=== PATIENT | female | born 1935 | race Caucasian/White ===

== ENCOUNTER 2020-03-28 09:00 | Outpatient (REF) | payer MEDICARE, SELFPAY ==
--- NOTE | 2020-03-30 08:25 | MHC.AU.P13 ---
Adult Audiological Evaluation Date of Visit: 03/28/20 Tieing Machine Operator Used: Not Applicable Reason for Appointment: Audiologic re-evaluation due to question of change in hearing ability. Previous Hearing Test Results: 08/27/2018 [facility] Bilateral mild sloping to moderately-severe sensorineural hearing loss with 88% speech understanding at 80 dB HL for the right ear and 92% for the left ear at 85 dB HL. Ear History: Bothersome Tinnitus/Ringing/Noises in Ears: Both Ears Medical History: Medical History: High Blood Pressure Medical History: Anneliese reports no change in health or medications since last hearing test. Hearing Instrument History- Right Ear: Supervisor Burling And Joining: Parametric Sound Model: [employer] M 70-312T Serial Number: [id number] Battery Size: 312 Warranty: 11/24/2021 Service Plan: Repair and L&D Dispensed By: [facility] Date of Fittin09/09/2018 Hearing Instrument History- Left Ear: Supervisor Burling And Joining: [employer] Model: [employer] [id number] Serial Number: [id number] Battery Size: 312 Warranty: 11/24/2021 Service Plan: Repair and L&D Dispensed By: [facility] Date of Fittin09/09/2018 Otoscopy: Right Ear: Unremarkable Left Ear: Unremarkable Tympanometry: Right Ear: Normal Middle Ear System (Type A) Left Ear: Normal Middle Ear System (Type A) Hearing Evaluation: Transducer(s) Used: Insert Earphones Bone Conduction Method: Conventional Audiometry Stimuli Used: Pure Tones Right Ear: Description of Hearing: Mild sloping to moderately-severe sensorineural hearing loss Left Ear: Description of Hearing: Mild sloping to moderately-severe sensorineural hearing loss Speech Recognition Threshold (SRT): Method Used: Monitored Live Voice Stimuli Used: Spondee Words Right Ear: 40 dB HL Left Ear: 40 dB HL Word Discrimination: Method: Recorded Lists Word Lists Used: NU-6 Right Ear: 92% at 80 dB HL Left Ear: 84% at 80 dB HL Comparison: Compared to the most recent evaluation: Hearing is stable. Recommendations: Recommendations: Audiological re-evaluation in one year. Recommendations (Other): Continued and consistent use of hearing aids. Diagnosis: Primary Diagnosis: H90.3 Bilateral Sensorineural Hearing Loss Services Performed: Services Performed: Comprehensive Audiological Evaluation (CPT 39346) Tympanometry (CPT 51040) Signature: Provider: Jacky Kovacs, GEORGE-A
== END 2020-03-28 09:01 | disposition home or self-care (01) ==
LOC: HO.SH 09:00
PROVIDERS: Visit Provider Internal Medicine
DX: H90.3 Sensorineural hearing loss, bilateral (principal)
CPT/HCPCS: 92557; 92567

== ENCOUNTER 2020-07-10 11:43 | Outpatient (REF) | payer SELFPAY ==
--- NOTE | 2020-07-10 11:46 | MHC.AU.P13 ---
Hearing Instrument Problem Date of Visit: 07/10/20 Right Ear: Fuel House Attendant: Phonak Model: [employer] M 70-312T Serial Number: [id number] Repair Warranty: 11/24/2021 Service Plan: Repair and L&D Battery Size: 312 Color: [place] Charge Operator: #2 medium Type of Dome: Small Vented Type of Wax Guard: CeruShield Left Ear: Fuel House Attendant: Phonak Model: [place]one [employer] [id number] Serial Number: [id number] RepairWarranty: 11/24/2021 Service Plan: Repair and L&D Battery Size: 312 Color: [place] Charge Operator: #2 Medium Type of Dome: Small Vented Type of Wax Guard: CeruShield Follow-Up Summary: Right aid dropped off - static. Sent to [facility] for repair. Patient's case in repair drawer. Recommendations: Recommendations: Patient will be contacted when materials have arrived. Signature: Provider: JOSE May
== END 2020-07-10 11:44 | disposition home or self-care (01) ==
LOC: HO.HAP 11:43
PROVIDERS: Visit Provider Internal Medicine
DX: Z13.89 Encounter for screening for other disorder (principal)

== ENCOUNTER 2020-07-18 09:00 | Outpatient (REF) | payer SELFPAY | END 2020-07-18 09:01 | disposition home or self-care (01) | LOC: HO.HAP 09:00 | PROVIDERS: Visit Provider Internal Medicine | DX: Z13.89 Encounter for screening for other disorder (principal) ==

== ENCOUNTER 2020-08-16 08:15 | Outpatient (REF) | payer SELFPAY ==
--- NOTE | 2020-08-16 08:38 | MHC.AU.HFU ---
Hearing Instrument Follow-Up- Binaural Date of Visit: 08/16/20 Right Ear: Artificial Flower Maker: Phonak Model: Jackyeo M 70-312T Serial Number: [id number] Repair Warranty: 11/24/2021 Battery Size: 312 Color: [place] Television Production Assistant: #2 medium Type of Dome: Small Vented Type of Wax Guard: CeruShield Dispensed By: [facility] Date of Fittin09/09/2018 Left Ear: Artificial Flower Maker: Phonak Model: Audeo [id number] Serial Number: [id number] Repair Warranty: 11/24/2021 Battery Size: 312 Color: [place] Television Production Assistant: #2 Medium Type of Dome: Small Vented Type of Wax Guard: CeruShield Dispensed By: [facility] Date of Fittin09/09/2018 Follow-Up Summary: Patient reports the left hearing aid is now producing static. The right hearing aid was sent out for the same issue last month. Left hearing aid inspected. Tried replacing thermodynamics engineer- static was reduced in volume, but still present. The hearing aid was sent to [facility] for repair under warranty. Maintenance performed on the right hearing aid. Replaced right dome and wax guard. Right hearing aid is amplifying clearly. Recommendations: Recommendations: Patient will be contacted when materials have arrived. Diagnosis Code(s): Primary Diagnosis: H90.3 Bilateral Sensorineural Hearing Loss Signature: Provider: Jacky Hurtado, [facility]
== END 2020-08-16 08:16 | disposition home or self-care (01) ==
LOC: HO.HAP 08:15
PROVIDERS: Visit Provider Internal Medicine
DX: Z13.89 Encounter for screening for other disorder (principal)

== ENCOUNTER 2020-09-04 15:29 | Outpatient (REF) | payer SELFPAY | END 2020-09-04 15:30 | disposition home or self-care (01) | LOC: HO.HAP 15:29 | PROVIDERS: Visit Provider Internal Medicine | DX: Z13.89 Encounter for screening for other disorder (principal) ==

== ENCOUNTER 2020-11-22 09:43 | Outpatient (REF) | payer MEDICARE, SELFPAY ==
--- NOTE | ~2020-11-22 | MM_ITS ---
EXAMINATION: MM SCREENING DIGITAL BREAST TOMOSYNTHESIS, BILATERAL CLINICAL INFORMATION: Screening. Asymptomatic. COMPARISON: Mammography: 09/10/2019, 01/16/2017, 01/14/2016 TECHNIQUE: Digital breast tomosynthesis is performed in both the craniocaudal and mediolateral oblique views along with computer-aided detection (CAD). Synthesized 2D images are generated from the tomosynthesis. FINDINGS: There are scattered areas of fibroglandular density (ACR BI-RADS breast composition Category b). There are no significant masses, abnormal calcifications, or other abnormalities. Parenchymal pattern is similar to prior exams. No developing density. There is a dermal lesion again seen overlying the upper outer right breast. MM/MM tomosynthesis screening BI IMPRESSION: No mammographic evidence of malignancy. ASSESSMENT: BI-RADS 2: Benign RECOMMENDATION: Routine annual mammography screening. This patient's information was entered into a reminder system with a target due date for their next mammogram.
== END 2020-11-22 09:44 | disposition home or self-care (01) ==
LOC: HO.MAMMO 09:43
PROVIDERS: PCP Internal Medicine; Visit Provider Internal Medicine
DX: Z12.31 Encounter for screening mammogram for malignant neoplasm of breast (principal)
CPT/HCPCS: 77063; 77067

== ENCOUNTER 2021-04-09 08:32 | Outpatient (REF) | payer MEDICARE, SELFPAY ==
--- NOTE | 2021-04-09 15:33 | MHC.AU.AHA ---
Adult Audiological Evaluation Date of Visit: 04/09/21 Reason for Appointment: Audiological re-evaluation to monitor the status of her hearing loss. Ms. Black has a known bilateral sensorineural hearing loss and uses hearing aids binaurally. She notes that the hearing aids have been working well and she hasn't noticed any significant changes to her hearing. She notes that she started taking a water pill, but does not recall the name. She denies any other changed to her medical history. Previous Hearing Test Results: [facility] [place], 03/28/2020- Mild sloping to moderately-severe sensorineural hearing loss bilaterally. Ear History: History of Ear Wax Buildup: Both Ears Medical History: Medical History: High Blood Pressure Medical History: Anneliese reports no change in health since last hearing test. Allergies: Soy Hearing Instrument History- Right Ear: Clerical Order Filler: [employer] Model: [employer] M 70-312T Serial Number: [id number] Battery Size: 312 Repair Warranty: 11/24/2021 Loss and Damage Warranty: 11/24/2021 Dispensed By: [facility] Date of Fittin09/09/2018 Hearing Instrument History- Left Ear: Clerical Order Filler: [employer] Model: S[employer] [id number] Serial Number: [id number] Battery Size: 312 Warranty: 11/24/2021 Loss and Damage Warranty: 11/24/2021 Dispensed By: [facility] Date of Fittin09/09/2018 Otoscopy: Right Ear: Partially occluding cerumen successfully removed with lighted curette Left Ear: Unremarkable Tympanometry: Tympanometry performed due to: To assess integrity of the middle ear system Right Ear: Normal Middle Ear System (Type A) Left Ear: Normal Middle Ear System (Type A) Hearing Evaluation: Transducer(s) Used: Insert Earphones, Bone Conduction Method: Conventional Audiometry Stimuli Used: Pure Tones Right Ear: Description of Hearing: Mild sloping to moderately-severe sensorineural hearing loss from 250-8000 Hz. Left Ear: Description of Hearing: Mild sloping to moderately-severe sensorineural hearing loss from 250-8000 Hz. Speech Recognition Threshold (SRT): Method Used: Monitored Live Voice Stimuli Used: Spondee Words Right Ear: 45 dBHL Left Ear: 45 dBHL Word Discrimination: Method: Recorded Lists Word Lists Used: NU-6 Right Ear: 96% at 85 dBHL Left Ear: 100% at 85 dBHL Comparison: Compared to the most recent evaluation: Hearing is stable. Recommendations: Audiological re-evaluation in one year. Hearing aid maintenance performed today. Hearing aid(s) reprogrammed with updated test results. Diagnosis: Primary Diagnosis: H90.3 Bilateral Sensorineural Hearing Loss Secondary Diagnosis: H61.21 Impacted Cerumen, Right Ear Services Performed: Comprehensive Audiological Evaluation (CPT 54916) Tympanometry (CPT 46823) Signature: Provider: Jacky Cornelius, CCC-A
== END 2021-04-09 08:33 | disposition home or self-care (01) ==
LOC: HO.SH 08:32
PROVIDERS: Visit Provider Internal Medicine
DX: H61.21 Impacted cerumen, right ear (principal); H90.3 Sensorineural hearing loss, bilateral
CPT/HCPCS: 92557; 92567

== ENCOUNTER 2021-06-17 08:36 | Outpatient (REF) | payer MEDICARE, SELFPAY ==
--- NOTE | ~2021-06-17 | XR_ITS ---
EXAMINATION: XR HIP, RIGHT CLINICAL INFORMATION: Right hip pain. On limited range of motion. COMPARISON: None TECHNIQUE: Two views of the right hip. FINDINGS: There is severe loss of right hip joint space with periarticular sclerosis and subchondral lucency. No visible acute fracture, dislocation or subluxation seen. There are subchondral cystic changes. The soft tissues are normal. XR/XR hip RT min 2V IMPRESSION: Advanced degenerative changes right hip joint with no acute fracture or subluxation.
== END 2021-06-17 08:37 | disposition home or self-care (01) ==
LOC: HO.HMGCX 08:36
PROVIDERS: PCP Internal Medicine; Visit Provider Internal Medicine
DX: M25.551 Pain in right hip (principal)
CPT/HCPCS: 73502

== ENCOUNTER 2021-06-28 09:44 | Outpatient (REF) | payer MEDICARE, SELFPAY ==
--- NOTE | ~2021-06-28 | XR_ITS ---
EXAMINATION: XR PELVIS CLINICAL INFORMATION: Hip pain COMPARISON: None TECHNIQUE: AP view of the pelvis. FINDINGS: There is severe loss of right hip joint space with subchondral cystic changes and sclerosis. The left hip joint space is normal. The SI joints are symmetrical and normal. No pelvic bone abnormality seen. There is lateral subluxation L4 over L5. There are phleboliths in the pelvis. There is moderate stool in the colon. XR/XR pelvis 1-2V IMPRESSION: Severe degenerative changes right hip joint. No acute fracture or dislocation. Significant constipation.
== END 2021-06-28 09:45 | disposition home or self-care (01) ==
LOC: HO.HOSX 09:44
PROVIDERS: Visit Provider Orthopaedic Surgery
DX: M16.11 Unilateral primary osteoarthritis, right hip (principal)
CPT/HCPCS: 72170; 99202

== ENCOUNTER → 2021-11-07 09:37 | Outpatient (BNVA) | payer MEDICARE, SELFPAY | PROVIDERS: PCP Internal Medicine; Visit Provider Orthopaedic Surgery | DX: M16.11 Unilateral primary osteoarthritis, right hip (principal) | CPT/HCPCS: 99212 ==

== ENCOUNTER 2021-11-28 09:37 | Outpatient (REF) | payer MEDICARE, SELFPAY ==
--- NOTE | ~2021-11-28 | MM_ITS ---
EXAMINATION: MM SCREENING DIGITAL BREAST TOMOSYNTHESIS, BILATERAL CLINICAL INFORMATION: Screening. Asymptomatic. COMPARISON: Mammography: 11/22/2020, 09/08/2019; outside mammography 01/16/2017 ([facility]). TECHNIQUE: Digital breast tomosynthesis is performed in both the craniocaudal and mediolateral oblique views along with computer-aided detection (CAD). Synthesized 2D images are generated from the tomosynthesis. FINDINGS: There are scattered areas of fibroglandular density (ACR BI-RADS breast composition Category b). There are no significant masses, abnormal calcifications, or other abnormalities. No developing density or architectural abnormality. No significant changes. MM/MM tomosynthesis screening BI IMPRESSION: No mammographic evidence of malignancy. ASSESSMENT: BI-RADS 1: Negative RECOMMENDATION: Routine annual mammography screening. This patient's information was entered into a reminder system with a target due date for their next mammogram.
== END 2021-11-28 09:38 | disposition home or self-care (01) ==
LOC: HO.MAMMO 09:37
PROVIDERS: PCP Internal Medicine; Visit Provider Internal Medicine
DX: Z12.31 Encounter for screening mammogram for malignant neoplasm of breast (principal)
CPT/HCPCS: 77063; 77067

== ENCOUNTER → 2022-01-09 11:38 | Outpatient (BNVA) | payer MEDICARE, SELFPAY | PROVIDERS: PCP Internal Medicine; Visit Provider Physician Assistant | DX: M16.11 Unilateral primary osteoarthritis, right hip (principal) | CPT/HCPCS: 99212 ==

== ENCOUNTER 2022-01-14 07:08 | Inpatient (IN) | payer MEDICARE, SELFPAY ==
[2022-01-06 12:16] VITALS: BP 151/65; PULSE 55; RESP 16; O2SAT 99; BMI 21.2
--- NOTE | 2022-01-06 12:32 | P.CONAN_ITS ---
Documented by User: Sharyn Vance NP 01/13/22 08:23 HPI - Anesthesia Eval Consult details Narrative: 86yo F for Right Hip Total Replacement PCP clear pending PONV PMFSH Active Problems Active Problems: All Active Problems (Updated 01/06/22 @ 12:12 by Kristy Chamorro RN) Osteoarthritis of right hip (Acute) Past Medical History Medical History Diabetes [place] ([place] of hearing) Hypertension Hypothyroid On beta gopi at home Osteoporosis PONV (postoperative nausea and vomiting) RBBB (right bundle branch block) Family History Family history of problems with anesthesia: Yes (Children with PONV) Surgical History Surgical History History of hysterectomy Hx of colonoscopy Hx of right hemicolectomy History of Problems with Anesthesia: Yes (PONV) Social History Social History Household Members Other:: Son lives upstairs - 2 family house Are you a primary primary care sales representative to a significant other at home: No Do you presently have visiting nurse or other home services: No Patient Tobacco Use Status: Former Tobacco user Quit Date: quit age 43 Tobacco use type: Cigarette Second Hand Smoke Exposure: No Use of substances other than those prescribed or required for medical reasons: No Have you been hit, kicked, punched, or otherwise hurt by someone within the past year? If so, by whom?: No Are you DNR?: No Advance Directives: No Advance Directives Information Provided: Yes Advance Directives on File: No Recently lost weight without trying: No Eating poorly because of decreased appetite: No Nutrition Risks: No Nutritional Risk Patient : No : No Poor oral hygiene: No (Full upper, Partial lower) Narrative Narrative: No recent illness No chest pain, no SOB within limits of pain Meds Allergies Allergy/AdvReac Type Severity Reaction Status Date / Time meperidine [From Demerol] Allergy Unknown Nausea and Verified 01/09/22 11:46 Vomiting From Soy AdvReac Mild PALPITATION Uncoded 01/09/22 11:46 S Home Medications Medication Instructions Recorded Confirmed Last Taken Type amlodipine 5 mg-benazepril 10 mg 1 cap PO DAILY 06/28/21 01/03/22 01/13/22 History capsule (Lotrel) aspirin 81 mg tablet,delayed 81 mg PO DAILY 06/28/21 01/03/22 01/07/22 History release (Adult Low Dose Aspirin) cholecalciferol (vitamin D3) 1 mg PO DAILY 06/28/21 01/14/22 01/11/22 History levothyroxine 75 mcg tablet 75 mcg PO DAILY 06/28/21 01/03/22 01/14/22 History metoprolol tartrate 25 mg tablet 25 mg PO DAILY 06/28/21 01/03/22 01/14/22 History simvastatin 20 mg tablet 20 mg PO DAILY 06/28/21 01/03/22 01/13/22 History alendronate 70 mg tablet 70 mg PO QWEEK 12/17/21 01/03/22 01/09/22 History furosemide 20 mg tablet 20 mg PO DAILY 12/17/21 01/03/22 01/13/22 History Exam Exam Date and Time: January 06, 2022 1232 Height,Weight and Vital Signs: Height 5 ft 4 in Weight 56.245 kg Last Vital Signs Pulse 55 01/06/22 12:16 Resp 16 01/06/22 12:16 BP 151/65 H 01/06/22 12:16 Pulse Ox 99 01/06/22 12:16 O2 Del Method 01/06/22 12:16 Pertinent Lab Results Pertinent Lab Results: CBC and BMP from outside facility 12/2021 WNL Narrative Narrative: EKG from PCP 12/2021 SA. RBBB Airway Mallampati Class: I TM Dist: >3cm Neck ROM: Full Denture: Upper Partial: Lower Heart: RRR Lungs: CTAB Assessment and Plan Assessment Anesthesia Assessment: Anesthesia Plan Discussed and PAT Visit Final Anesthetic Review Family History of Problems with Anesthesia: Yes (Children with PONV) History of Problems with Anesthesia: Yes (PONV) Documented by User: Niraj Wright MD 01/14/22 10:53 HPI - Anesthesia Eval Consult details Narrative: 86yo F for Right Hip Total Replacement PCP cleared Sinus arrhythmia PONV PMFSH Past Medical History Medical History Diabetes [place]hard of hearing) Hypertension Hypothyroid On beta gopi at home Osteoporosis PONV (postoperative nausea and vomiting) RBBB (right bundle branch block) Surgical History Surgical History History of hysterectomy Hx of colonoscopy Hx of right hemicolectomy Social History Social History Household Members Other:: Son lives upstairs - 2 family house Are you a primary primary care sales representative to a significant other at home: No Do you presently have visiting nurse or other home services: No Patient Tobacco Use Status: Former Tobacco user Quit Date: quit age 43 Tobacco use type: Cigarette Second Hand Smoke Exposure: No Use of substances other than those prescribed or required for medical reasons: No Have you been hit, kicked, punched, or otherwise hurt by someone within the past year? If so, by whom?: No Are you DNR?: No Advance Directives: No Advance Directives Information Provided: Yes Advance Directives on File: No Recently lost weight without trying: No Eating poorly because of decreased appetite: No Nutrition Risks: No Nutritional Risk Patient : No : No Poor oral hygiene: No (Full upper, Partial lower) Meds Allergies Allergy/AdvReac Type Severity Reaction Status Date / Time meperidine [From Demerol] Allergy Unknown Nausea and Verified 01/09/22 11:46 Vomiting From Soy AdvReac Mild PALPITATION Uncoded 01/09/22 11:46 S Home Medications Medication Instructions Recorded Confirmed Last Taken Type amlodipine 5 mg-benazepril 10 mg 1 cap PO DAILY 06/28/21 01/03/22 01/13/22 History capsule (Lotrel) aspirin 81 mg tablet,delayed 81 mg PO DAILY 06/28/21 01/03/22 01/07/22 History release (Adult Low Dose Aspirin) cholecalciferol (vitamin D3) 1 mg PO DAILY 06/28/21 01/14/22 01/11/22 History levothyroxine 75 mcg tablet 75 mcg PO DAILY 06/28/21 01/03/22 01/14/22 History metoprolol tartrate 25 mg tablet 25 mg PO DAILY 06/28/21 01/03/22 01/14/22 History simvastatin 20 mg tablet 20 mg PO DAILY 06/28/21 01/03/22 01/13/22 History alendronate 70 mg tablet 70 mg PO QWEEK 12/17/21 01/03/22 01/09/22 History furosemide 20 mg tablet 20 mg PO DAILY 12/17/21 01/03/22 01/13/22 History Assessment and Plan Final Anesthetic Review NPO: Yes ASA Class: III Final Preanesthetic Review: No Changes in Pt Med Stat, Meds/Allgs Chart Reviewed, Consent Obtained/Reviewed and Anes Risks/Benef Reviewed Patient Risk: Intermediate Procedure Risk: Intermediate Anesthetic Plan Anesthetic Plan: GA Disposition: Standard PACU
[2022-01-06 15:19] LABS: MRSA Nasal PCR NEGATIVE (Negative); SA Nasal PCR NEGATIVE (Negative)
[2022-01-14] VITALS (15 sets, daily range): BP systolic 111–161; BP diastolic 52–66; PULSE 50–70; RESP 12–18; TEMP 36.3–36.9; O2SAT 97–100
--- NOTE | ~2022-01-14 | XR_ITS ---
EXAMINATION: XR PELVIS CLINICAL INFORMATION: Right hip replacement COMPARISON: Previous pelvis x-ray June 2021 TECHNIQUE: AP view of the pelvis. FINDINGS: There is a new right hip replacement in satisfactory position. No fracture or dislocation. There is mild arthritis at the left hip joint. There are postoperative changes to the soft tissues. XR/XR pelvis 1-2V IMPRESSION: Satisfactory appearance of right hip replacement.
[2022-01-14] MEDS: oxyCODONE HCl ER 10 MG TAB.ER.12H PO (07:36)
[2022-01-14] MEDS: Scopolamine 1.5 MG PATCH.TD.3 TRANSDERMA (07:36)
--- NOTE | 2022-01-14 07:43 | PHA.MEDREC ---
Pharmacy Consult ? Medication Reconciliation Pharmacy has completed the medication reconciliation. Reviewed med rec done by nursing
[2022-01-14 07:52] LABS: COVID-19 Test Negative (Negative); IDNOW Serial# 16C4AD1C
[2022-01-14] MEDS: Lactated Ringers 1,000 ML 100 ML IVCONT ×3 (08:20→22:40)
--- NOTE | 2022-01-14 11:16 | P.BOP_ITS ---
Brief Operative Note Date of Service: 01/14/22 Pre-op diagnosis: Right hip OA Post-op diagnosis: same Procedure: Right ELDER Implants: Rene Trident2 #54/ 20deg lipped liner [place] Accolade2 #6 127 deg + 0 36 cobalt chrome head Surgeon: Jr Chavez MD Anesthesia: GETA and local Was an Phlebotomy Services Representative used for this Procedure?: Yes Phlebotomy Services Representative: Danuta Mckenna Estimated blood loss (mL): 200 IV fluids (mL): 1,000 Pathology: other Condition: stable Disposition: PACU
--- NOTE | 2022-01-14 11:19 | W.PM.OPN ---
Operative Note Operative Note Date of Service: 01/14/22 Narrative: Date of Service: 01/14/22 Pre-op diagnosis: Right hip OA Post-op diagnosis: same Procedure: Right ELDER Implants: [place] Trident2 #54/ 20deg lipped liner Rene Accolade2 #6 127 deg + 0 36 cobalt chrome head Surgeon: Jr Chavez MD Anesthesia: GETA and local Was an Assembler For Puller Over Machine used for this Procedure?: Yes Assembler For Puller Over Machine: Danuta Mckenna Estimated blood loss (mL): 200 IV fluids (mL): 1,000 Pathology: other Condition: stable Disposition: PACU Procedure in detail: Patient was brought into the operating room and placed in the left lateral decubitus position. All bony prominences were well padded and the limb was prepped and draped in standard sterile fashion. Time-out was called to identify proper site procedure proper surgeon IV antibiotics and 1 g of transaxemic acid were administered. I began by making a curvilinear incision over the posterolateral aspect of the greater trochanter. Dissection was taken down to the tensor fascia which was incised in line with the incision and a Charnley retractor was placed. Cautery was used to maintain hemostasis. A werewolf device was also used. The hip was internally rotated and the external rotators were identified. The vessels were cauterized and a full-thickness capsular/external rotator layer was developed starting just proximal to the piriformis. This layer was tagged and a dull Hohmann retractor was placed underneath the neck in the hip was dislocated. A neck cut was made 1 cm proximal to the lesser trochanter and the head and neck were removed and measured at 47mm on the back table. The sciatic nerve was protected at all times and I started with a 42 mm reamer, medialized and sequentially reamed up to a size 53 and impacted a 54mm cup at approximately 45 degrees of inclination and 25 degrees of version. I then placed a lipped liner and turned my attention to the femur. I identified the piriformis insertion and used this as a starting point for my tiffany cutter. The medius tendon was protected with a Hibs retractor. I then used a Charnley awl to identify the canal and a curved curette to remove the lateral bone. I irrigated copiously. I then sequentially broached in the patient's natural version to a size 6 and placed my trial implants. Using a 127deg neck and a trail head I took the hip through range of motion. I was very satisfied with the stability and length. Therefore I removed all instrumentation and copiously irrigated. I placed my final femoral implant and again took the hip through range of motion and was satisfied with the stability and length. My final 36 + 0 cobalt chrome head was impacted in place the hip located. I then irrigated for 3 minutes with iodine and placed 1 g of local tranaxemic acid. I then performed a capsular closure with 2.0 fiberwire, Jen's fascia with 0 Vicryl, subcuticular with 2-0 Vicryl and the skin with zaheer. Patient was placed into a sterile dressing. Patient was extubated brought to the recovery room in stable condition. There were no known complications.
[2022-01-14] MEDS: Haloperidol Lactate 5 MG/ML VIAL IV (11:40)
[2022-01-14] MEDS: ondansetron HCL 4 MG/2 ML VIAL IVPUSH ×2 (13:16→17:03)
[2022-01-14 16:15] LABS: Creatinine Clr Calc Pharmacy 35.9; Estimated Glomerular Filt Rate 54
[2022-01-14] MEDS: ceFAZolin Sodium/Dextrose,Iso 2 GM/50 ML PIGGYBACK IV (16:20)
--- NOTE | 2022-01-14 17:05 | P.CONHOSP_ITS ---
History of Present Illness Data of Consult Service Date: 01/14/22 Requesting physician: Danuta Mckenna Primary Care Provider: Kam Stallworth MD HPI Reason for consult: medical management HTN, hx pe 86 year old female with history of diet-controlled type 2 diabetes, hearing loss, hypertension, hypothyroidism, osteoporosis, and history of provoked PE following colectomy 30 years ago not on anticoagulation admitted to Orthopedics s/p right hip replacement pod 0 with consult placed for medical management. Her only complaint at this time is mild dizziness and nausea that has been ongoing s caroline the surgery. Denies any associated blurred vision, diplopia, vomiting, headache, shortness of breath, presyncope, or chest pain. Review of Systems Review of Systems: General: No fevers, malaise, unintentional weight loss HEENT: No blurred vision or diplopia Cardiovascular: No chest pain, palpitations, or leg edema Respiratory: No shortness of breath, wheezing, cough GI: + nausea. No abdominal pain, vomiting, diarrhea, constipation, melena, hematochezia Neuro: +dizzy. No headaches, weakness, paresthesias Skin: No rashes or lesions [facility] Medical History Diabetes [place] (hard of hearing) Hypertension Hypothyroid On beta gopi at home Osteoporosis PONV (postoperative nausea and vomiting) RBBB (right bundle branch block) Family History (Updated 01/14/22 @ 17:08 by JEANETH Dominguez) Mother No problems noted. Father No problems noted. Surgical History History of hysterectomy Hx of colonoscopy Hx of right hemicolectomy Social History Household Members Other:: Son lives upstairs - 2 family house Are you a primary skin care technician to a significant other at home: No Do you presently have visiting nurse or other home services: No Patient Tobacco Use Status: Former Tobacco user Quit Date: quit age 43 Tobacco use type: Cigarette Second Hand Smoke Exposure: No Use of substances other than those prescribed or required for medical reasons: No Currently Displaying Signs/Symptoms of Drug Intoxication Withdrawal: No Have you been hit, kicked, punched, or otherwise hurt by someone within the past year? If so, by whom?: No Are you DNR?: No Advance Directives: No Advance Directives Information Provided: Yes Advance Directives on File: No Recently lost weight without trying: No Eating poorly because of decreased appetite: No Nutrition Risks: No Nutritional Risk Patient : No : No Poor oral hygiene: No (Full upper, Partial lower) service: No Current occupational status: retired Meds Allergies Allergy/AdvReac Type Severity Reaction Status Date / Time meperidine [From Demerol] Allergy Unknown Nausea and Verified 01/09/22 11:46 Vomiting From Soy AdvReac Mild PALPITATION Uncoded 01/09/22 11:46 S Active Medications: Current Medications Acetaminophen (Acetaminophen 325 Mg Tablet) 650 mg PO Q6H PRN PRN Reason: Pain, Mild (Pain Scale 1-3) Celecoxib (Celecoxib 200 Mg Capsule) 200 mg PO BID [facility] Docusate Sodium (Docusate Sodium 100 Mg Capsule) 100 mg PO BID [facility] Enoxaparin Sodium (Enoxaparin Sodium 40 Mg/0.4 Ml Syringe) 40 mg SUBCUT Q24H [facility] Haloperidol Lactate (Haloperidol Lactate 5 Mg/Ml Vial) 0.25 mg IV Q1H PRN PRN Reason: Nausea and Vomiting Last Admin: 01/14/22 11:40 Dose: 0.25 mg Hydromorphone HCl (Hydromorphone Hcl 0.5 Mg/0.5 Ml Syringe) 0.25 mg IVPUSH Q5M PRN; Protocol PRN Reason: Pain, Severe (Pain Scale 7-10) Hydromorphone HCl (Hydromorphone Hcl 0.5 Mg/0.5 Ml Syringe) 0.25 mg IVPUSH Q4H PRN; Protocol PRN Reason: Pain, Severe (Pain Scale 7-10) Lactated Ringer's (Lr) 1,000 mls @ 100 mls/hr IVCONT .Q10H [facility] Stop: 01/15/22 11:55 Last Admin: 01/14/22 12:05 Dose: 100 mls/hr Levothyroxine Sodium (Levothyroxine Sodium 75 Mcg Tablet) 75 mcg PO DAILY@0600 [facility] Metoprolol Tartrate (Metoprolol Tartrate 25 Mg Tablet) 25 mg PO DAILY [facility]; Protocol Ondansetron HCl (Ondansetron Hcl 4 Mg/2 Ml Vial) 4 mg IVPUSH Q8H PRN PRN Reason: Nausea and Vomiting Oxycodone HCl (Oxycodone Hcl Immed Release 5 Mg Tablet) 5 mg PO ONCE PRN PRN Reason: Pain, Severe (Pain Scale 7-10) Oxycodone HCl (Oxycodone Hcl Immed Release 5 Mg Tablet) 5 mg PO Q4H PRN PRN Reason: Pain, Moderate (Pain Scale 4-6 Sodium Chloride (0.9 % Sodium Chloride Flush 3 Ml Syringe) 3 ml IVFLUSH QSHIFT [facility] Last Admin: 01/14/22 16:10 Dose: Not Given Home Medications Medication Instructions Recorded Confirmed Last Taken Type amlodipine 5 mg-benazepril 10 mg 1 cap PO DAILY 06/28/21 01/03/22 01/13/22 History capsule (Lotrel) aspirin 81 mg tablet,delayed 81 mg PO DAILY 06/28/21 01/03/22 01/07/22 History release (Adult Low Dose Aspirin) cholecalciferol (vitamin D3) 1 mg PO DAILY 06/28/21 01/14/22 01/11/22 History levothyroxine 75 mcg tablet 75 mcg PO DAILY 06/28/21 01/03/22 01/14/22 History metoprolol tartrate 25 mg tablet 25 mg PO DAILY 06/28/21 01/03/22 01/14/22 History simvastatin 20 mg tablet 20 mg PO DAILY 06/28/21 01/03/22 01/13/22 History alendronate 70 mg tablet 70 mg PO QWEEK 12/17/21 01/03/22 01/09/22 History furosemide 20 mg tablet 20 mg PO DAILY 12/17/21 01/03/22 01/13/22 History Physical Exam Vital Signs and Narrative: Vital Signs: Last Vital Signs Temp 97.3 F 01/14/22 16:00 Pulse 64 01/14/22 16:00 Resp 18 01/14/22 16:00 BP 134/62 01/14/22 16:00 Pulse Ox 100 01/14/22 16:00 O2 Del Method 01/14/22 16:00 O2 Flow Rate 2 01/14/22 16:00 BMI result Body Mass Index 21.2 Constitutional - Awake and Alert, No apparent distress Eyes - PERRLA, EOMI Cardiovascular - S1S2, RRR, No edema Respiratory - Normal lung expansion, Normal respiratory effort, No respiratory distress, CTA bilaterally Gastrointestinal - NT / ND; +BS; No rebound or guarding Extremities - no calf tenderness bilaterally, no swelling Skin - Warm/Dry Neurological - Alert & oriented x3, CN II-XII in tact Psychological - Appropriate affect Results Labs CBC and Chem 7: 01/15/22 06:21 01/15/22 06:21 Labs: Laboratory Results - last 24 hr 01/14/22 01/14/22 07:30 15:46 Estim Creat Clear Calc 35.9 Estimated GFR 54 COVID-19 ([facility]) Negative COVID-19 Clin Com See Note Assessment and Plan (1) Status post total replacement of right hip: Status: Acute (2) Osteoarthritis of right hip: Status: Acute Plan 86 year old female with history of diet-controlled type 2 diabetes, hearing loss, hypertension, hyperlipidemia, hypothyroidism, osteoporosis, and history of provoked PE following colectomy 30 years ago not on anticoagulation admitted to Orthopedics s/p right hip replacement pod 0 with consult placed for medical management. Her only complaint at this time is mild dizziness and nausea that has been ongoing since the surgery. Denies any associated blurred vision, diplopia, vomiting, headache, shortness of breath, presyncope, or chest pain. #Osteoarthritis R hip s/p total hip replacement POD 0 -plan per orthopedics. -Reporting mild nausea and dizziness since surgery. Ondansetron given by RN. Will continue monitoring #HTN- controlled at this time -Continue metoprolol daily -Hold amlodipine-benazapril for now -Monitor BP. Resume amlodipine-benazepril as indicated #Hypothyroidisam -Continue levothyroxine #HLD -Continue statin #History PE -Provoked s/p colectomy 30 years ago. Completed anticoagulation without recurrence. Lifelong anticoagulation not indicated -DVT/PE prophylaxis per orthopedic surgery #osteoporosis -alendronate to be resumed at home. Next dose due Thank you for this consult. Will continue to follow.
[2022-01-14] MEDS: Celecoxib 200 MG CAPSULE PO (20:49)
[2022-01-14] MEDS: Docusate Sodium 100 MG CAPSULE PO (20:49)
[2022-01-15] VITALS (7 sets, daily range): BP systolic 99–120; BP diastolic 49–57; PULSE 56–93; RESP 14–18; TEMP 36.4–37.2; O2SAT 94–99
[2022-01-15] MEDS: 0.9 % Sodium Chloride Flush 3 ML SYRINGE IVFLUSH ×3 (00:31→20:53)
[2022-01-15] MEDS: Levothyroxine Sodium 75 MCG TABLET PO (05:42)
[2022-01-15 06:28] LABS: MANUAL DIFF FLAG NO
[2022-01-15 06:32] LABS: Basophils Percent Auto 0.2 % (0-2); Hemoglobin 9.2 g/dl (12.0-16.0); Imm Gran Abs Auto 0.03 X10*3/uL (0.00-0.03); Imm Gran Pct Auto 0.3 % (0.0-0.4); Lymphocytes Absolute Auto 1.3 X10*3/uL (1.2-4.9); Lymphocytes Percent Auto 11.3 % (20-40); Mean Corpuscular HGB Conc 34.1 g/dl (31.0-35.0); Mean Corpuscular Hemoglobin 30.7 pg (27.0-33.0); Mean Platelet Volume 9.3 fL (9.4-12.3); Monocytes Absolute Auto 1.2 X10*3/uL (0.1-1.2); Monocytes Percent Auto 10.5 % (2-11); Neutrophils Absolute Auto 8.8 x10*3/uL (2.0-8.3); Neutrophils Percent Auto 77.7 % (45-73); Platelet Count 212 X10*3/uL (160-400); Red Cell Distribution Width 13.1 % (11.0-16.0); White Blood Count 11.3 X10*3/uL (4.8-10.8)
[2022-01-15 07:01] LABS: Anion Gap 11 (12-20); Blood Urea Nitrogen 15 mg/dL (9-16); Calcium 8.3 mg/dL (8.4-10.2); Carbon Dioxide 29 mmol/L (22-29); Chloride 104 mmol/L (96-108); Creatinine Clr Calc Pharmacy 37.8; Estimated Glomerular Filt Rate 58; Glucose Fasting 124 mg/dL (60-99); Potassium 4.2 mmol/L (3.3-5.1); Sodium 140 mmol/L (135-145)
[2022-01-15] MEDS: Celecoxib 200 MG CAPSULE PO ×2 (07:43→20:51)
[2022-01-15] MEDS: HYDROmorphone HCl 0.5 MG/0.5 ML SYRINGE 0.25 MG IVPUSH (07:44)
--- NOTE | 2022-01-15 07:44 | MHC.CM.PN ---
PATIENT LIVES ALONE. HER SON LIVES IN THE APARTMENT ABOVE HER. RELIES ON A CANE AND HAS A WALKER. NO SERVICES IN THE HOME. HCP IS OLDEST SON, DILCIA, AND A COPY IS REQUESTED NO P.T. [facility] YET BUT PATIENT ANTICIPATES HOME WITH SERVICES. REFERRAL TO NA PLACED PER REQUEST. IMM 01/15 IN CHART
[2022-01-15] MEDS: Docusate Sodium 100 MG CAPSULE PO ×2 (07:46→20:53)
--- NOTE | 2022-01-15 08:00 | P.PNIM_ITS ---
Subjective Subjective Date of Service: 01/15/22 Interval History: Seen in f/u for med consult, post hip surgery interim history: doing better, walking with help Review of Systems no fever hip pain with movement Physical Exam Vital Signs: Vital Signs: Last Vital Signs Temp 99 F 01/15/22 02:58 Pulse 85 01/15/22 02:58 Resp 16 01/15/22 02:58 BP 99/50 L 01/15/22 02:58 Pulse Ox 98 01/15/22 02:58 O2 Del Method 01/15/22 02:58 O2 Flow Rate 1 01/14/22 23:50 BMI result Body Mass Index 21.2 Const: Other: General: AO X 3, no acute distress Resp: CTA bilateral CVS: S1,S2,RRR GI: +BS, NT, no distention Skin:Hip dressing in place Neuro: motor grossly intact Psych: appropriate affect Objective Data Active Medications Acetaminophen (Acetaminophen 325 Mg Tablet) 650 mg PO Q6H PRN PRN Reason: Pain, Mild (Pain Scale 1-3) Celecoxib (Celecoxib 200 Mg Capsule) 200 mg PO BID [facility] Last Admin: 01/15/22 07:43 Dose: 200 mg Documented By: ALIA Docusate Sodium (Docusate Sodium 100 Mg Capsule) 100 mg PO BID [facility] Last Admin: 01/15/22 07:46 Dose: 100 mg Documented By: ALIA Enoxaparin Sodium (Enoxaparin Sodium 40 Mg/0.4 Ml Syringe) 40 mg SUBCUT Q24H [facility] Haloperidol Lactate (Haloperidol Lactate 5 Mg/Ml Vial) 0.25 mg IV Q1H PRN PRN Reason: Nausea and Vomiting Last Admin: 01/14/22 11:40 Dose: 0.25 mg Documented By: MARIELOS Hydromorphone HCl (Hydromorphone Hcl 0.5 Mg/0.5 Ml Syringe) 0.25 mg IVPUSH Q5M PRN; Protocol PRN Reason: Pain, Severe (Pain Scale 7-10) Hydromorphone HCl (Hydromorphone Hcl 0.5 Mg/0.5 Ml Syringe) 0.25 mg IVPUSH Q4H PRN; Protocol PRN Reason: Pain, Severe (Pain Scale 7-10) Last Admin: 01/15/22 07:44 Dose: 0.25 mg Documented By: ALIA Lactated Ringer's (Lr) 1,000 mls @ 100 mls/hr IVCONT .Q10H [facility] Stop: 01/15/22 11:55 Last Admin: 01/14/22 22:40 Dose: 100 mls/hr Documented By: FUAD Levothyroxine Sodium (Levothyroxine Sodium 75 Mcg Tablet) 75 mcg PO DAILY@0600 [facility] Last Admin: 01/15/22 05:42 Dose: 75 mcg Documented By: FUAD Metoprolol Tartrate (Metoprolol Tartrate 25 Mg Tablet) 25 mg PO DAILY [facility]; Protocol Ondansetron HCl (Ondansetron Hcl 4 Mg/2 Ml Vial) 4 mg IVPUSH Q8H PRN PRN Reason: Nausea and Vomiting Last Admin: 01/14/22 17:03 Dose: 4 mg Documented By: ALIA Oxycodone HCl (Oxycodone Hcl Immed Release 5 Mg Tablet) 5 mg PO ONCE PRN PRN Reason: Pain, Severe (Pain Scale 7-10) Oxycodone HCl (Oxycodone Hcl Immed Release 5 Mg Tablet) 5 mg PO Q4H PRN PRN Reason: Pain, Moderate (Pain Scale 4-6 Sodium Chloride (0.9 % Sodium Chloride Flush 3 Ml Syringe) [facility] Last Admin: 01/15/22 07:50 Dose: 3 ml Documented By: ALIA Labs CBC & Chem 7: 01/15/22 06:21 01/15/22 06:21 Labs: Laboratory Results - last 24 hr 01/14/22 01/15/22 01/15/22 15:46 06:21 06:21 MCV 90.0 MCH 30.7 MCHC 34.1 RDW 13.1 Plt Count 212 MPV 9.3 L Immature Gran % (Auto) 0.3 Neut % (Auto) 77.7 H Lymph % (Auto) 11.3 L [place] % (Auto) 10.5 Eos % (Auto) 0.0 Baso % (Auto) 0.2 Lymph # (Auto) 1.3 [place] # (Auto) 1.2 Eos # (Auto) 0.0 Baso # (Auto) 0.0 Abs Immat Gran (auto) 0.03 Absolute Neuts (auto) 8.8 H Absolute Nucleated RBC 0.000 Nucleated RBC % (auto) 0.0 Anion Gap 11 L Estim Creat Clear Calc 35.9 37.8 Estimated GFR 54 58 Fasting Glucose 124 H Calcium 8.3 L Assessment and Plan (1) Hypothyroid: Status: Acute (2) Hypertension: Status: Acute (3) Diabetes: Status: Acute Plan 86 year old female with history of diet-controlled type 2 diabetes, hearing loss, hypertension, hyperlipidemia, hypothyroidism, osteoporosis, and 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 Her only complaint at this time is mild dizziness and nausea that has been ongoing since the surgery.? Denies any associated blurred vision, diplopia, vomiting, headache, shortness of breath, presyncope, or chest pain. #Osteoarthritis R hip s/p total hip replacement POD 1 -management including DVT prevention per Ortho #HTN- on lower side -Continue metoprolol daily -Hold amlodipine-benazapril for now -Monitor BP. Resume amlodipine-benazepril when BP is better #Hypothyroidisam -Continue levothyroxine #HLD -Continue statin #Diabetes--diet controlled #History PE 30 years ago. Completed anticoagulation without recurrence. Lifelong anticoagulation not indicated -DVT/PE prophylaxis per orthopedic surgery #osteoporosis -alendronate to be resumed at home. Next dose due Need for hospitalization: defer to ortho Quality Stroke Does the patient have a stroke diagnosis?: No VTE Prior VTE?: Yes VTE Risk Level:: Medical - moderate - high VTE Device Contraindication: N/A - Device Ordered VTE Drug Contraindication: N/A - Med Ordered
[2022-01-15] MEDS: Lactated Ringers 1,000 ML 100 ML IVCONT (08:22)
[2022-01-15] MEDS: ondansetron HCL 4 MG/2 ML VIAL IVPUSH (08:22)
--- NOTE | 2022-01-15 09:08 | P.PNOP_ITS ---
Subjective Subjective Date of Service: 01/15/22 Interval history: Pod 1 sp RT ELDER no overnight events resting in bed, no concerns denies sob, cp, palpitations Physical Exam Vital Signs: Vital Signs: Last Vital Signs Temp 97.5 F 01/15/22 08:00 Pulse 93 01/15/22 08:00 Resp 14 01/15/22 08:00 BP 120/57 L 01/15/22 08:00 Pulse Ox 98 01/15/22 08:00 O2 Del Method 01/15/22 08:00 O2 Flow Rate 2 01/15/22 08:00 BMI result Body Mass Index 21.2 Const: General: cooperative, healthy appearing and no acute distress Resp: Effort & Inspection: normal respiratory effort and able to speak in complete sentences Cardio: Rate: regular rate Peripheral pulses: Peripheral pulses 2+ throughout GI: Palpation (GI): Soft to palpation Skin: General skin exam: no rashes or lesions noted Extrem: Other: incision clean dry and intact. Emilee intact. No erythema or joint effusion. Calf supple nontender. Neurovascularly intact. Procedures Date of Service Date of Service: 01/15/22 Progress Note: A&P Assessment and plan (1) Status post total replacement of right hip: Status: Acute Plan * Continue pain mgmnt * Begin Lovenox for dvt ppx * begin PT for RT TKA * Dispo planning-Pending PT eval, pain mgmnt Time Spent With Patient Time: Total time spent is greater than 50% in coordination of care (as documented) at patient's floor/unit and/or counseling patient: Quality Stroke Does the patient have a stroke diagnosis?: No VTE Prior VTE?: Yes VTE Risk Level:: Surgical - very high VTE Device Contraindication: N/A - Device Ordered VTE Drug Contraindication: N/A - Med Ordered
[2022-01-15] MEDS: Metoprolol Tartrate 25 MG TABLET PO (10:00)
[2022-01-15] MEDS: Enoxaparin Sodium 40 MG/0.4 ML SYRINGE SUBCUT (10:05)
--- NOTE | 2022-01-15 14:02 | HO.POSTANES ---
Post Anesthesia Evaluation Post Anesthesia Evaluation Vital Signs: Vital Signs Temp Pulse Resp BP Pulse Ox O2 Del Method O2 Flow Rate 01/15/22 11:29 96 Room Air 01/15/22 11:23 98.2 F 56 17 114/55 L 96 Room Air 01/15/22 08:00 97.5 F 93 14 120/57 L 98 Nasal Cannula 2 01/15/22 02:58 99 F 85 16 99/50 L 98 Room Air Anesthesia: General Mental Status: Awake Pain Control: Satisfactory Nausea/Vomiting: None Hydration: Adequate Anesthesia-Related Issues: No Anes. Related Issues
[2022-01-15] MEDS: Acetaminophen 325 MG TABLET 650 MG PO (14:13)
[2022-01-16] VITALS (12 sets, daily range): BP systolic 92–130; BP diastolic 40–61; PULSE 57–84; RESP 16–17; TEMP 36.3–37; O2SAT 93–99
[2022-01-16] MEDS: Acetaminophen 325 MG TABLET 650 MG PO ×2 (03:23→23:48)
[2022-01-16] MEDS: Levothyroxine Sodium 75 MCG TABLET PO (06:19)
[2022-01-16 06:27] LABS: MANUAL DIFF FLAG NO
[2022-01-16 06:41] LABS: Basophils Percent Auto 0.2 % (0-2); Hematocrit 23.9 % (37.0-47.0); Hemoglobin 7.9 g/dl (12.0-16.0); Imm Gran Abs Auto 0.02 X10*3/uL (0.00-0.03); Imm Gran Pct Auto 0.2 % (0.0-0.4); Lymphocytes Absolute Auto 1.4 X10*3/uL (1.2-4.9); Lymphocytes Percent Auto 15.9 % (20-40); Mean Corpuscular HGB Conc 33.1 g/dl (31.0-35.0); Mean Corpuscular Hemoglobin 29.9 pg (27.0-33.0); Mean Corpuscular Volume 90.5 fL (80.0-98.0); Mean Platelet Volume 10.3 fL (9.4-12.3); Monocytes Absolute Auto 0.8 X10*3/uL (0.1-1.2); Monocytes Percent Auto 8.3 % (2-11); Neutrophils Absolute Auto 6.8 x10*3/uL (2.0-8.3); Neutrophils Percent Auto 75.4 % (45-73); Platelet Count 189 X10*3/uL (160-400); Red Blood Count 2.64 X10*6/uL (4.20-5.50); Red Cell Distribution Width 13.2 % (11.0-16.0); White Blood Count 9.1 X10*3/uL (4.8-10.8)
[2022-01-16 06:56] LABS: Anion Gap 9 (12-20); Blood Urea Nitrogen 14 mg/dL (9-16); Carbon Dioxide 30 mmol/L (22-29); Chloride 104 mmol/L (96-108); Creatinine Clr Calc Pharmacy 36.6; Estimated Glomerular Filt Rate 56; Glucose Fasting 102 mg/dL (60-99); Potassium 4.5 mmol/L (3.3-5.1); Sodium 138 mmol/L (135-145)
[2022-01-16] MEDS: Metoprolol Tartrate 25 MG TABLET PO (08:40)
[2022-01-16] MEDS: Docusate Sodium 100 MG CAPSULE PO ×2 (08:40→20:39)
[2022-01-16] MEDS: Enoxaparin Sodium 40 MG/0.4 ML SYRINGE SUBCUT (08:41)
[2022-01-16] MEDS: Celecoxib 200 MG CAPSULE PO ×2 (08:41→20:39)
[2022-01-16] MEDS: 0.9 % Sodium Chloride Flush 3 ML SYRINGE IVFLUSH ×2 (08:42→20:39)
--- NOTE | 2022-01-16 09:27 | P.PNIM_ITS ---
Subjective Subjective Date of Service: 01/16/22 Interval History: Seen in f/u for med consult, post hip surgery interim history: doing well, pain is controlled, was ambulating in [place] with PT/OT Review of Systems no fever hip pain with movement Physical Exam Vital Signs: Vital Signs: Last Vital Signs Temp 97.5 F 01/16/22 07:49 Pulse 76 01/16/22 07:49 Resp 16 01/16/22 07:49 BP 123/57 L 01/16/22 07:49 Pulse Ox 97 01/16/22 07:49 O2 Del Method 01/16/22 07:49 O2 Flow Rate 2 01/15/22 08:00 BMI result Body Mass Index 21.2 Const: Other: General: AO X 3, no acute distress Resp: CTA bilateral CVS: S1,S2,RRR GI: +BS, NT, no distention Skin:Hip dressing in place Neuro: motor grossly intact Psych: appropriate affect Objective Data Active Medications Acetaminophen (Acetaminophen 325 Mg Tablet) 650 mg PO Q6H PRN PRN Reason: Pain, Mild (Pain Scale 1-3) Last Admin: 01/16/22 03:23 Dose: 650 mg Documented By: SEKOU Celecoxib (Celecoxib 200 Mg Capsule) 200 mg PO BID [facility] Last Admin: 01/16/22 08:41 Dose: 200 mg Documented By: FELIPE Docusate Sodium (Docusate Sodium 100 Mg Capsule) 100 mg PO BID [facility] Last Admin: 01/16/22 08:40 Dose: 100 mg Documented By: FELIPE Enoxaparin Sodium (Enoxaparin Sodium 40 Mg/0.4 Ml Syringe) 40 mg SUBCUT Q24H [facility] Last Admin: 01/16/22 08:41 Dose: 40 mg Documented By: FELIPE Haloperidol Lactate (Haloperidol Lactate 5 Mg/Ml Vial) 0.25 mg IV Q1H PRN PRN Reason: Nausea and Vomiting Last Admin: 01/14/22 11:40 Dose: 0.25 mg Documented By: MARIELOS Hydromorphone HCl (Hydromorphone Hcl 0.5 Mg/0.5 Ml Syringe) 0.25 mg IVPUSH Q5M PRN; Protocol PRN Reason: Pain, Severe (Pain Scale 7-10) Hydromorphone HCl (Hydromorphone Hcl 0.5 Mg/0.5 Ml Syringe) 0.25 mg IVPUSH Q4H PRN; Protocol PRN Reason: Pain, Severe (Pain Scale 7-10) Last Admin: 01/15/22 07:44 Dose: 0.25 mg Documented By: ALIA Levothyroxine Sodium (Levothyroxine Sodium 75 Mcg Tablet) 75 mcg PO DAILY@0600 [facility] Last Admin: 01/16/22 06:19 Dose: 75 mcg Documented By: SEKOU Metoprolol Tartrate (Metoprolol Tartrate 25 Mg Tablet) 25 mg PO DAILY [facility]; Protocol Last Admin: 01/16/22 08:40 Dose: 25 mg Documented By: FELIPE Ondansetron HCl (Ondansetron Hcl 4 Mg/2 Ml Vial) 4 mg IVPUSH Q8H PRN PRN Reason: Nausea and Vomiting Last Admin: 01/15/22 08:22 Dose: 4 mg Documented By: ALIA Oxycodone HCl (Oxycodone Hcl Immed Release 5 Mg Tablet) 5 mg PO ONCE PRN PRN Reason: Pain, Severe (Pain Scale 7-10) Oxycodone HCl (Oxycodone Hcl Immed Release 5 Mg Tablet) 5 mg PO Q4H PRN PRN Reason: Pain, Moderate (Pain Scale 4-6 Sodium Chloride (0.9 % Sodium Chloride Flush 3 Ml Syringe) 3 ml IVFLUSH [facility] Last Admin: 01/16/22 08:42 Dose: 3 ml Documented By: FELIPE Labs CBC & Chem 7: 01/16/22 06:00 01/16/22 06:00 Labs: Laboratory Results - last 24 hr 01/16/22 01/16/22 06:00 06:00 MCV 90.5 MCH 29.9 MCHC 33.1 RDW 13.2 Plt Count 189 MPV 10.3 Immature Gran % (Auto) 0.2 Neut % (Auto) 75.4 H Lymph % (Auto) 15.9 L [place] % (Auto) 8.3 Eos % (Auto) 0.0 Baso % (Auto) 0.2 Lymph # (Auto) 1.4 [place] # (Auto) 0.8 Eos # (Auto) 0.0 Baso # (Auto) 0.0 Abs Immat Gran (auto) 0.02 Absolute Neuts (auto) 6.8 Absolute Nucleated RBC 0.000 Nucleated RBC % (auto) 0.0 Anion Gap 9 L Estim Creat Clear Calc 36.6 Estimated GFR 56 Fasting Glucose 102 H Calcium 8.0 L Assessment and Plan (1) Hypothyroid: Status: Acute (2) Hypertension: Status: Acute Plan 86 year old female with history of diet-controlled type 2 diabetes, hearing loss, hypertension, hyperlipidemia, hypothyroidism, osteoporosis, and 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 Her only complaint at this time is mild dizziness and nausea that has been ongoing since the surgery.? Denies any associated blurred vision, diplopia, vomiting, headache, shortness of breath, presyncope, or chest pain. #Osteoarthritis R hip s/p total hip replacement POD 1 -management including DVT prevention per Ortho #HTN- on lower side -Continue metoprolol daily -Hold amlodipine-benazapril for now -Monitor BP. Resume amlodipine-benazepril when BP is better #Hypothyroidisam -Continue levothyroxine #HLD -Continue statin #Diabetes--diet controlled #History PE 30 years ago. Completed anticoagulation without recurrence. Lifelong anticoagulation not indicated -DVT/PE prophylaxis per orthopedic surgery #osteoporosis -alendronate to be resumed at home. Need for hospitalization: defer to ortho Quality Stroke Does the patient have a stroke diagnosis?: No VTE Prior VTE?: Yes VTE Risk Level:: Medical - moderate - high VTE Device Contraindication: N/A - Device Ordered VTE Drug Contraindication: N/A - Med Ordered
--- NOTE | 2022-01-16 09:53 | P.PNOP_ITS ---
Subjective Subjective Date of Service: 01/16/22 Interval history: Pod 2 sp RT ELDER no overnight events resting in bed, no concerns denies sob, cp, palpitations Physical Exam Vital Signs: Vital Signs: Last Vital Signs Temp 97.5 F 01/16/22 07:49 Pulse 76 01/16/22 07:49 Resp 16 01/16/22 07:49 BP 123/57 L 01/16/22 07:49 Pulse Ox 97 01/16/22 07:49 O2 Del Method 01/16/22 07:49 O2 Flow Rate 2 01/15/22 08:00 BMI result Body Mass Index 21.2 Const: General: cooperative, healthy appearing and no acute distress Resp: Effort & Inspection: normal respiratory effort and able to speak in complete sentences Cardio: Rate: regular rate Peripheral pulses: Peripheral pulses 2+ throughout GI: Palpation (GI): Soft to palpation Skin: General skin exam: no rashes or lesions noted Extrem: Other: incision clean dry and intact. Emilee intact. No erythema or joint effusion. Calf supple nontender. Neurovascularly intact. Procedures Date of Service Date of Service: 01/16/22 Progress Note: A&P Assessment and plan (1) Status post total replacement of right hip: Status: Acute Plan * Continue pain mgmnt * h/h dropped from yesterday-will give 2units PRBCs * Lovenox for dvt ppx * PT for RT ELDER * Dispo planning-Pending PT eval, pain mgmnt Time Spent With Patient Time: Total time spent is greater than 50% in coordination of care (as documented) at patient's floor/unit and/or counseling patient: Quality Stroke Does the patient have a stroke diagnosis?: No VTE Prior VTE?: Yes VTE Risk Level:: Medical - moderate - high VTE Device Contraindication: N/A - Device Ordered VTE Drug Contraindication: N/A - Med Ordered
--- NOTE | 2022-01-16 19:50 | P.DS_ITS ---
DS: Providers Provider Date of Service: 01/16/22 Date of admission: 01/14/22 07:08 Primary care physician: Kam Stallworth MD Consults: 01/14/22 15:11 Consult to Hospitalist Routine Consulting Provider: Hospitalist Reason For Exam: htn, h/o pe, DS: Diagnosis Discharge Diagnosis (1) Status post total replacement of right hip: Status: Acute DS: Summary Hospital Course Hospital Course: The patient underwent a successful right total hip arthroplasty, was transferred to PACU and then to the floor to recover. During their stay, their vitals were stable, afebrile at 97.6 . Labs were unremarkable, H/H 149/65. POD 1 she was started on Lovenox for DVT ppx, they also received PT and OT services twice a day. Prior to discharge, their dressing was change, incision clean dry and intact, new Aquacel dressing applied and the plan was to be discharged home with VNA services. Time Spent with Patient Time attestation: Total time spent providing and/or coordinating discharge services: Discharge coordination time: Less than 30 minutes Quality: Safe Use of Opioids Does Pt have an Active Cancer Diagnosis on the Problem List?: No Quality: Stroke Does the patient have a stroke diagnosis?: No Physical Exam Vital Signs: Vital Signs: Last Vital Signs Temp 98.2 F 01/16/22 17:46 Pulse 60 01/16/22 17:46 Resp 17 01/16/22 17:46 BP 102/53 L 01/16/22 17:46 Pulse Ox 97 01/16/22 16:00 O2 Del Method 01/16/22 16:00 O2 Flow Rate 2 01/15/22 08:00 BMI result Body Mass Index 21.2 Const: General: cooperative, healthy appearing and no acute distress Resp: Effort & Inspection: normal respiratory effort and able to speak in complete sentences Cardio: Rate: regular rate Peripheral pulses: Peripheral pulses 2+ throughout GI: Palpation (GI): Soft to palpation Skin: General skin exam: no rashes or lesions noted Extrem: Other: incision clean dry and intact. [place] intact. No erythema or effusion. Calf supple nontender. Neurovascularly intact. DS: Data Data Completed and Pending Completed studies during hospitalization [Text1]: Pending at discharge 01/14/22 10:44 Surgical [PTH] Routine Labs on day of discharge: Laboratory Results - last 24 hr 01/16/22 01/16/22 01/16/22 06:00 06:00 09:17 WBC 9.1 RBC 2.64 L Hgb 7.9 L Hct 23.9 L MCV 90.5 MCH 29.9 MCHC 33.1 RDW 13.2 Plt Count 189 MPV 10.3 Immature Gran % (Auto) 0.2 Neut % (Auto) 75.4 H Lymph % (Auto) 15.9 L [place] % (Auto) 8.3 Eos % (Auto) 0.0 Baso % (Auto) 0.2 Lymph # (Auto) 1.4 [place] # (Auto) 0.8 Eos # (Auto) 0.0 Baso # (Auto) 0.0 Abs Immat Gran (auto) 0.02 Absolute Neuts (auto) 6.8 Absolute Nucleated RBC 0.000 Nucleated RBC % (auto) 0.0 Sodium 138 Potassium 4.5 Chloride 104 Carbon Dioxide 30 H Anion Gap 9 L BUN 14 Creatinine 0.95 Estim Creat Clear Calc 36.6 Estimated GFR 56 Fasting Glucose 102 H Calcium 8.0 L Blood Type O Positive Antibody Screen NEGATIVE Crossmatch See Detail Discharge Plan Discharge Anticipated Discharge Date/Time: 01/17/22 07:51 Patient Disposition: Home Health Service Discharge Diagnosis: RT ELDER Referrals: [facility] [Outside] - 1 Week Danuta Mckenna PA-C [Physician Rf Test Technician] - 2 Weeks (01/30/22 2:30 [facility] Danuta Mckenna PA-C) Discharge Medications: New oxycodone 5 mg Tablet 5 mg PO Q4H PRN (Reason: Pain, Moderate (Pain Scale 4-6) 7 Days Qty: 42 0RF Rx Instructions: Partial Fill upon patient request. acetaminophen 325 mg Tablet 650 mg PO Q6H PRN (Reason: Pain, Mild (Pain Scale 1-3)) 30 Days Qty: 240 0RF docusate sodium 100 mg Capsule 100 mg PO BID 7 Days Qty: 14 0RF enoxaparin 40 mg/0.4 mL Syringe 40 mg subcut Q24H 42 Days Qty: 16.8 0RF Continued amlodipine-benazepril [Lotrel] 5-10 mg capsule 1 cap PO DAILY metoprolol tartrate 25 mg tablet 25 mg PO DAILY simvastatin 20 mg tablet 20 mg PO DAILY levothyroxine 75 mcg tablet 75 mcg PO DAILY aspirin [Adult Low Dose Aspirin] 81 mg tablet,delayed release (DR/EC) 81 mg PO DAILY cholecalciferol (vitamin D3) 1 mg PO DAILY alendronate 70 mg tablet 70 mg PO QWEEK furosemide 20 mg tablet 20 mg PO DAILY (DME) walker Misc See Rx Instructions .MEDSUPPLY Qty: 1 0RF Rx Instructions: Folding Front wheeled walker Discharge Orders: Discharge Order (Routine); Ordered 01/17/22 Ordered By: Danuta Mckenna Diet: Regular diet Activity on Discharge: Use cane or walker Stand Alone Forms: Patient Portal Discharge page Care Plan Goals: Restore function of joint Health Concerns: none Plan of Treatment: Physical Therapy Pain management DVT prophylaxis Assessment: * Physical Therapy for Total hip arthroplasty: wbat, posterior precautions, gait training, ROM, strength * Limit stair climbing * No showering, no tub bath-keep dressing clean, dry and intact * No driving x6 weeks * Continue Lovenox x6 weeks * Follow up with [facility] in 2 weeks: 01/30/22 @ 2:30pm * --you will also have your first out patient PT romana on the day of your post op appt-so please plan on being in the office that day for an extended period of time.
[2022-01-17 03:54] VITALS: BP 110/56; PULSE 62; RESP 17; TEMP 36.3; O2SAT 97
[2022-01-17] MEDS: Levothyroxine Sodium 75 MCG TABLET PO (05:28)
[2022-01-17 05:45] LABS: MANUAL DIFF FLAG NO
[2022-01-17 05:51] LABS: Basophils Percent Auto 0.3 % (0-2); Eosinophils Percent Auto 0.5 % (0-4); Hematocrit 30.6 % (37.0-47.0); Hemoglobin 10.2 g/dl (12.0-16.0); Imm Gran Abs Auto 0.02 X10*3/uL (0.00-0.03); Imm Gran Pct Auto 0.3 % (0.0-0.4); Lymphocytes Absolute Auto 1.4 X10*3/uL (1.2-4.9); Lymphocytes Percent Auto 18.1 % (20-40); Mean Corpuscular HGB Conc 33.3 g/dl (31.0-35.0); Mean Corpuscular Hemoglobin 29.4 pg (27.0-33.0); Mean Corpuscular Volume 88.2 fL (80.0-98.0); Monocytes Absolute Auto 0.6 X10*3/uL (0.1-1.2); Monocytes Percent Auto 7.9 % (2-11); Neutrophils Absolute Auto 5.5 x10*3/uL (2.0-8.3); Neutrophils Percent Auto 72.9 % (45-73); Platelet Count 171 X10*3/uL (160-400); Red Blood Count 3.47 X10*6/uL (4.20-5.50); Red Cell Distribution Width 13.9 % (11.0-16.0); White Blood Count 7.6 X10*3/uL (4.8-10.8)
[2022-01-17 06:07] LABS: Anion Gap 11 (12-20); Blood Urea Nitrogen 18 mg/dL (9-16); Calcium 7.8 mg/dL (8.4-10.2); Carbon Dioxide 27 mmol/L (22-29); Chloride 104 mmol/L (96-108); Estimated Glomerular Filt Rate > 60; Glucose Fasting 105 mg/dL (60-99); Potassium 4.3 mmol/L (3.3-5.1); Sodium 138 mmol/L (135-145)
[2022-01-17 07:44] VITALS: BP 149/65; PULSE 64; RESP 18; TEMP 36.4; O2SAT 99
--- NOTE | 2022-01-17 07:59 | P.F2F_ITS ---
Service Date Service Date: 01/17/22 Encounter Date of encounter: 01/17/22 Reasons for Services Signs and symptoms assessed: right hip pain, weakness, poor balance Reason for physical therapy: home safety and mobility, therapeutic exercises, restore joint function, gait/transfer training, ADL training and energy conservation Reason for occupational therapy: home safety and mobility, therapeutic exercises, restore joint function, gait/transfer training, ADL training and energy conservation Overseeing Care: Jr Chavez Homebound: Leaving the home is medically contraindicated at this time without the asist of a device and/or another person due th the listed conditions above and below. Reason homebound: unsteady gait / fall risk, pain with ambulation, poor balance / fall risk and unable to drive Homebound supporting statement: Pt. is considered home bound due to recent surgery. Unable to drive, poor balance, poor gait mechanics. Certification: Based on the above findings, I certify that this patient is confined to the home and needs intermittent group home care, physical therapy and/or speech therapy, or continues to need occupational therapy. The patient is under my care, and I have initiated the establishment of the plan of care. The patient will be followed by a physician who will periodically review the plan of care.
[2022-01-17] MEDS: Celecoxib 200 MG CAPSULE PO (08:25)
[2022-01-17] MEDS: Docusate Sodium 100 MG CAPSULE PO (08:25)
[2022-01-17] MEDS: Metoprolol Tartrate 25 MG TABLET PO (08:25)
[2022-01-17] MEDS: 0.9 % Sodium Chloride Flush 3 ML SYRINGE IVFLUSH (08:26)
[2022-01-17 08:46] VITALS: BP 149/65; PULSE 64; O2SAT 99
[2022-01-17] MEDS: Enoxaparin Sodium 40 MG/0.4 ML SYRINGE SUBCUT (09:44)
--- NOTE | 2022-01-17 10:13 | MHC.CM.PN ---
PT CLEARED TO DC HOME TODAY WITH [facility] FOR PT AND SN PT WILL DC ON LOVENOX RN WILL PROVIDE TEACH THIS MORNING AND [facility] WILL REINFORCE FAMILY WILL TRANSPORT
--- NOTE | 2022-01-17 10:37 | P.PNIM_ITS ---
Subjective Subjective Date of Service: 01/17/22 Interval History: f/u on med consult, s/p ELDER doing well, no new issues Review of Systems no pain, no fever Physical Exam Vital Signs: Vital Signs: Last Vital Signs Temp 97.6 F 01/17/22 07:44 Pulse 64 01/17/22 08:46 Resp 18 01/17/22 07:44 BP 149/65 H 01/17/22 08:46 Pulse Ox 99 01/17/22 08:46 O2 Del Method 01/17/22 09:46 O2 Flow Rate 2 01/15/22 08:00 BMI result Body Mass Index 21.2 Const: General: cooperative, healthy appearing and no acute distress Resp: Effort & Inspection: normal respiratory effort and able to speak in complete sentences Cardio: Rate: regular rate Peripheral pulses: Peripheral pulses 2+ throughout GI: Palpation (GI): Soft to palpation Skin: General skin exam: no rashes or lesions noted Extrem: Other: incision clean dry and intact. [place] intact. No erythema or effusion. Calf supple nontender. Neurovascularly intact. Objective Data Active Medications Acetaminophen (Acetaminophen 325 Mg Tablet) 650 mg PO Q6H PRN PRN Reason: Pain, Mild (Pain Scale 1-3) Last Admin: 01/16/22 23:48 Dose: 650 mg Documented By: ANDRIA Celecoxib (Celecoxib 200 Mg Capsule) 200 mg PO BID [facility] Last Admin: 01/17/22 08:25 Dose: 200 mg Documented By: FELIPE Docusate Sodium (Docusate Sodium 100 Mg Capsule) 100 mg PO BID [facility] Last Admin: 01/17/22 08:25 Dose: 100 mg Documented By: FELIPE Enoxaparin Sodium (Enoxaparin Sodium 40 Mg/0.4 Ml Syringe) 40 mg SUBCUT Q24H [facility] Last Admin: 01/17/22 09:44 Dose: 40 mg Documented By: COTEMA Haloperidol Lactate (Haloperidol Lactate 5 Mg/Ml Vial) 0.25 mg IV Q1H PRN PRN Reason: Nausea and Vomiting Last Admin: 01/14/22 11:40 Dose: 0.25 mg Documented By: MARIELOS Hydromorphone HCl (Hydromorphone Hcl 0.5 Mg/0.5 Ml Syringe) 0.25 mg IVPUSH Q5M PRN; Protocol PRN Reason: Pain, Severe (Pain Scale 7-10) Hydromorphone HCl (Hydromorphone Hcl 0.5 Mg/0.5 Ml Syringe) 0.25 mg IVPUSH Q4H PRN; Protocol PRN Reason: Pain, Severe (Pain Scale 7-10) Last Admin: 01/15/22 07:44 Dose: 0.25 mg Documented By: ALIA Levothyroxine Sodium (Levothyroxine Sodium 75 Mcg Tablet) 75 mcg PO DAILY@0600 [facility] Last Admin: 01/17/22 05:28 Dose: 75 mcg Documented By: ANDRIA Metoprolol Tartrate (Metoprolol Tartrate 25 Mg Tablet) 25 mg PO DAILY [facility]; Protocol Last Admin: 01/17/22 08:25 Dose: 25 mg Documented By: FELIPE Ondansetron HCl (Ondansetron Hcl 4 Mg/2 Ml Vial) 4 mg IVPUSH Q8H PRN PRN Reason: Nausea and Vomiting Last Admin: 01/15/22 08:22 Dose: 4 mg Documented By: ALIA Oxycodone HCl (Oxycodone Hcl Immed Release 5 Mg Tablet) 5 mg PO ONCE PRN PRN Reason: Pain, Severe (Pain Scale 7-10) Oxycodone HCl (Oxycodone Hcl Immed Release 5 Mg Tablet) 5 mg PO Q4H PRN PRN Reason: Pain, Moderate (Pain Scale 4-6 Sodium Chloride (0.9 % Sodium Chloride Flush 3 Ml Syringe) [facility] Last Admin: 01/17/22 08:26 Dose: 3 ml Documented By: FELIPE Labs CBC & Chem 7: 01/17/22 05:30 01/17/22 05:30 Labs: Laboratory Results - last 24 hr 01/16/22 01/17/22 01/17/22 09:17 05:30 05:30 MCV 88.2 MCH 29.4 MCHC 33.3 RDW 13.9 Plt Count 171 MPV 10.0 Immature Gran % (Auto) 0.3 Neut % (Auto) 72.9 Lymph % (Auto) 18.1 L [place] % (Auto) 7.9 Eos % (Auto) 0.5 Baso % (Auto) 0.3 Lymph # (Auto) 1.4 [place] # (Auto) 0.6 Eos # (Auto) 0.0 Baso # (Auto) 0.0 Abs Immat Gran (auto) 0.02 Absolute Neuts (auto) 5.5 Absolute Nucleated RBC 0.000 Nucleated RBC % (auto) 0.0 Anion Gap 11 L Estim Creat Clear Calc 40.0 Estimated GFR > 60 Fasting Glucose 105 H Calcium 7.8 L Blood Type O Positive Antibody Screen NEGATIVE Crossmatch See Detail Assessment and Plan (1) Hypothyroid: Status: Inactive (2) Hypertension: Status: Inactive Plan 86 year old female with history of diet-controlled type 2 diabetes, hearing loss, hypertension, hyperlipidemia, hypothyroidism, osteoporosis, and 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 Her only complaint at this time is mild dizziness and nausea that has been ongoing since the surgery.? Denies any associated blurred vision, diplopia, vomiting, headache, shortness of breath, presyncope, or chest pain. #Osteoarthritis R hip s/p total hip replacement POD 2 -management including DVT prevention per Ortho #HTN- bP on higher side can resume home medsr #Hypothyroidisam -Continue levothyroxine #HLD -Continue statin #acute blood loss anemia--improved with transfusion #Diabetes--diet controlled #History PE 30 years ago. Completed anticoagulation without recurrence. Lifelong anticoagulation not indicated -DVT/PE prophylaxis per orthopedic surgery #osteoporosis -alendronate to be resumed at home. Need for hospitalization: defer to ortho, medically ok to dc Quality Stroke Does the patient have a stroke diagnosis?: No VTE Prior VTE?: Yes VTE Risk Level:: Medical - moderate - high VTE Device Contraindication: N/A - Device Ordered VTE Drug Contraindication: N/A - Med Ordered
== END 2022-01-17 11:14 | disposition home health service (06) | DRG 470 ==
LOC: HO.SSSA 07:38 → HO.S3 15:09
PROVIDERS: Physician Assistant; Admitting Provider Orthopaedic Surgery; PCP Internal Medicine; Visit Provider Orthopaedic Surgery
PROC: 0SR901A Replacement of Right Hip Joint with Metal Synthetic Substitute, Uncemented, Open Approach (ICD-10-PCS; CPT 27130; principal; 2022-01-14 09:40)
DX: M16.11 Unilateral primary osteoarthritis, right hip (principal); D62 Acute posthemorrhagic anemia; E03.9 Hypothyroidism, unspecified; E11.9 Type 2 diabetes mellitus without complications; M81.0 Age-related osteoporosis without current pathological fracture; E78.5 Hyperlipidemia, unspecified; I10 Essential (primary) hypertension; Z20.822 Contact with and (suspected) exposure to COVID-19; Z86.711 Personal history of pulmonary embolism; Z87.891 Personal history of nicotine dependence; Z88.5 Allergy status to narcotic agent; Z79.82 Long term (current) use of aspirin; Z79.890 Hormone replacement therapy; Z79.899 Other long term (current) drug therapy
CPT/HCPCS: 27130; 36415; 72170; 80048; 82565; 85025; 86850; 86900; 86901; 86923; 87635; 87640; 87641; 88304; 88311; 97110; 97116; 97162; 97165; 97530; 97535; C1713; C1776; J0131; J0690; J1100; J1170; J1650; J2370; J2405; J2795; J3010; P9016

== ENCOUNTER → 2022-01-30 14:32 | Outpatient (BNVA) | payer MEDICARE, SELFPAY | PROVIDERS: PCP Internal Medicine; Visit Provider Physician Assistant | DX: Z47.1 Aftercare following joint replacement surgery (principal); Z96.641 Presence of right artificial hip joint | CPT/HCPCS: 99212 ==

== ENCOUNTER → 2022-02-28 13:27 | Outpatient (BNVA) | payer MEDICARE, SELFPAY | PROVIDERS: PCP Internal Medicine; Visit Provider Physician Assistant | DX: Z47.1 Aftercare following joint replacement surgery (principal); Z96.641 Presence of right artificial hip joint | CPT/HCPCS: 99212 ==

== ENCOUNTER 2022-03-14 09:00 | Outpatient (RCR) | payer MEDICARE, SELFPAY ==
--- NOTE | 2022-01-30 15:28 | MHC.PT.EP ---
[facility] [place] Office [place] Office [place] Office [address] Domo Martínez [address] [phone] F: [phone] F: [phone] F: [phone] F: [phone] Physical Therapy Plan of Care Date of Evaluation: Date of Surgery: 01/14/22 Diagnosis: S/P Rt ELDER Assessment: 86 YO FEMALE REF TO PT S/P Rt ELDER 01/14/22, POSTERIOR APPROACH. SHE RESIDES ALONE IN A FIRST FLOOR APT WITH HER SON ON THE 2ND FLOOR AND SHE IS CURRENTLY AMB W A W/WALKER. OBJECTIVE FINDINGS: PO ROM DEFICITS RIGHT HIP, TIGHT HIP FLEXORS/ CALF MM, (+) STRENGTH DEFICITS, AND MILD RIGHT PROX LE PAIN. Pt BENEFITTED FROM REVIEW OF HER POSTERIOR ELDER RESTRICTIONS/ PRECAUTIONS. FUNCTIONALLY, Pt IS CURRENTLY LIMITED WITH W BED MOB AND TRANSFERS (INCR UEs COMPENSATION), SHOWERING (CLEARED TODAY AND Pt NOTES SHE HAS A TUB SHOWER ), DECR STANDING, ALTERED GAIT MECHANICS, STAIR MGMT, AND RESTRICTED WITH MORE PHYSICALLY DEMANDING ADLs. Pt WOULD BENEFIT FROM PT AT THIS TIME TO GUIDE HER IN HER POST-OP COURSE, DEV A PROGR HEP, ADDRESS PAIN MGMT, AND OBTAINING MAXIMAL LEVEL OF FUNCTIONAL INDEPENDENCE. Frequency and Duration: The patient will be seen 2 x WK x 10 WKS Short Term Goals: *Pt'S RIGHT HIP PAIN DECR TO 2-05/30 *INCR FLEXIB IN PSOAS/ CALF/ HS MM TO IMPROVE EFFICIENCY OF GAIT ON LEVEL AND STAIRS *INITIATE HEP *Pt'S DTR TO MEASURE INTERNAL AND EXTERNAL HEIGHT OF TUB SIDES FOR SIMUL FOR SHOWERING Long-Term Goals: Pt INDEP W HEP PROGRESSION AND SELF-SX MGMT STRATEGIES IN 10 WKS Pt RESUME REG ADLs EVIDENT W IMPROVED LEFI SCORE BY 8-10 POINTS (AT EVAL ) IN 10 WKS Pt INCR Rt LE STRENGTH BY 1 GRADE IN 10 WKS Treatment Plan: Modalities to reduce pain, spasms and effusion. Manual therapy to restore motion and function. Therapeutic exercise to improve strength and flexibility. Neuromuscular re-education for posture and balance. Therapeutic activities to return to functional activities of daily living. Electronically signed by: ROZ AKINS,PT Please sign and return to therapist. Thank you for your referral.
--- NOTE | 2022-03-14 09:59 | MHC.PT.DC ---
[facility] [place] Office [place] Office [place] Office [address] Domo Martínez [address] [phone] F: [phone] F: [phone] F: [phone] F: [phone] Physical Therapy Discharge Report Diagnosis: S/P Rt ELDER Date of Surgery: 01/14/22 Date of Evaluation: 01/30/22 Date of Discharge: 03/14/22 Treatments to Date: 12 Cancellations to Date: 0 No Shows to Date: 0 Discharge Status: Improved Function Independent with HEP Discharge Summary: She has made excellent progress and is now walking without assistive device with no evidence of imbalance or fatigue. We reviewed HEP and she has no further questions at this time. D/c to I HEP. Electronically signed by: Kelly Ventura PT Please sign and return to therapist. Thank you for your referral.
== END 2022-03-14 09:59 | disposition home or self-care (01) ==
LOC: HO.PTCHIC 09:00
PROVIDERS: Visit Provider Physician Assistant
DX: Z96.641 Presence of right artificial hip joint (principal)
CPT/HCPCS: 97110; 97112; 97162; 97530

== ENCOUNTER → 2022-04-11 09:17 | Outpatient (BNVA) | payer MEDICARE, SELFPAY | PROVIDERS: PCP Internal Medicine; Visit Provider Orthopaedic Surgery | DX: Z13.89 Encounter for screening for other disorder (principal) | CPT/HCPCS: 99212 ==

== ENCOUNTER 2022-08-27 08:52 | Outpatient (REF) | payer MEDICARE, SELFPAY | END 2022-08-27 08:53 | disposition home or self-care (01) | LOC: HO.SH 08:52 | PROVIDERS: Visit Provider Internal Medicine | DX: Z01.118 Encounter for examination of ears and hearing with other abnormal findings (principal); H90.3 Sensorineural hearing loss, bilateral | CPT/HCPCS: 92552; 92556; 92567 ==

== ENCOUNTER 2022-08-27 09:36 | Outpatient (REF) | payer SELFPAY | END 2022-08-27 09:37 | disposition home or self-care (01) | LOC: HO.HAP 09:36 | PROVIDERS: Visit Provider Internal Medicine | DX: Z46.1 Encounter for fitting and adjustment of hearing aid (principal); H90.3 Sensorineural hearing loss, bilateral | CPT/HCPCS: 92593 ==

== ENCOUNTER 2022-12-04 09:34 | Outpatient (REF) | payer MEDICARE, SELFPAY | END 2022-12-04 09:35 | disposition home or self-care (01) | LOC: HO.MAMMO 09:34 | PROVIDERS: PCP Internal Medicine; Visit Provider Internal Medicine | DX: Z12.31 Encounter for screening mammogram for malignant neoplasm of breast (principal) | CPT/HCPCS: 77063; 77067 ==

== ENCOUNTER → 2022-12-04 09:45 | Outpatient (BNV) | payer MEDICARE, SELFPAY | PROVIDERS: PCP Internal Medicine; Visit Provider Radiology Diagnostic Radiology | DX: Z12.31 Encounter for screening mammogram for malignant neoplasm of breast (principal) | CPT/HCPCS: 77063; 77067 ==

== ENCOUNTER 2023-10-10 06:31 | Outpatient (REF) | payer MEDICARE, SELFPAY ==
[2023-10-10 11:21] LABS: MANUAL DIFF FLAG NO
[2023-10-10 11:27] LABS: Basophils Percent Auto 0.7 % (0-2); Eosinophils Percent Auto 0.5 % (0-4); Hematocrit 42.1 % (37.0-47.0); Hemoglobin 13.9 g/dl (12.0-16.0); Imm Gran Abs Auto 0.03 X10*3/uL (0.00-0.03); Imm Gran Pct Auto 0.5 % (0.0-0.4); Lymphocytes Absolute Auto 1.4 X10*3/uL (1.2-4.9); Lymphocytes Percent Auto 23.1 % (20-40); Mean Corpuscular Volume 90.9 fL (80.0-98.0); Mean Platelet Volume 9.9 fL (9.4-12.3); Monocytes Absolute Auto 0.4 X10*3/uL (0.1-1.2); Monocytes Percent Auto 6.1 % (2-11); Neutrophils Absolute Auto 4.2 x10*3/uL (2.0-8.3); Neutrophils Percent Auto 69.1 % (45-73); Platelet Count 313 X10*3/uL (160-400); Red Blood Count 4.63 X10*6/uL (4.20-5.50); Red Cell Distribution Width 13.6 % (11.0-16.0); White Blood Count 6.1 X10*3/uL (4.8-10.8)
[2023-10-10 11:54] LABS: Alanine Aminotransferase 18 U/L (0-31); Albumin Level 4.2 g/dL (3.5-5.0); Alkaline Phosphatase 52 U/L (39-117); Anion Gap 12 (12-20); Aspartate Amino Transferase 26 U/L (5-31); Bilirubin Total 0.7 mg/dL (0.0-1.0); Blood Urea Nitrogen 15 mg/dL (9-16); Calcium 9.3 mg/dL (8.4-10.2); Carbon Dioxide 25 mmol/L (22-29); Chloride 105 mmol/L (96-108); Cholesterol 174 mg/dL (<200); Estimated Glomerular Filt Rate 58; Glucose Fasting 130 mg/dL (60-99); HDL Cholesterol 50 mg/dL (>40); LDL Cholesterol Calculated 108 mg/dL (<100); Potassium 4.4 mmol/L (3.3-5.1); Sodium 138 mmol/L (135-145); Total Protein 6.9 g/dL (6.5-8.0); Triglycerides 82 mg/dL (<150)
[2023-10-10 12:09] LABS: Free T4 (Free Thyroxine) 1.27 ng/dL (0.71-1.85); Thyroid Stimulating Hormone 0.94 uIU/mL (0.32-4.0)
== END 2023-10-10 06:32 | disposition home or self-care (01) ==
LOC: HO.HMGCLDS 06:31
PROVIDERS: PCP Internal Medicine; Visit Provider Internal Medicine
DX: R53.83 Other fatigue (principal); E78.5 Hyperlipidemia, unspecified
CPT/HCPCS: 36415; 80053; 80061; 84439; 84443; 85025

== ENCOUNTER 2023-12-10 09:28 | Outpatient (REF) | payer MEDICARE, SELFPAY ==
--- NOTE | ~2023-12-10 | MM_ITS ---
EXAMINATION: MM SCREENING DIGITAL BREAST TOMOSYNTHESIS, BILATERAL CLINICAL INFORMATION: Screening. Asymptomatic. COMPARISON: Mammography: Comparison is made with available priors TECHNIQUE: Digital breast mammography with tomosynthesis is performed in both the craniocaudal and mediolateral oblique views along with computer-aided detection (CAD). FINDINGS: There are scattered areas of fibroglandular density (ACR BI-RADS breast composition Category b). There are no significant masses, abnormal calcifications, or other abnormalities. MM/MM tomosynthesis screening BI IMPRESSION: No mammographic evidence of malignancy. ASSESSMENT: BI-RADS BI-RADS 1 - Negative RECOMMENDATION: Routine annual mammography screening. 1 year F/U This examination should not preclude the clinical evaluation of a suspicious palpable abnormality. This patient's information was entered into a reminder system with a target due date for their next mammogram. Electronically signed by: Aster Kaye DO 12/22/2023 07:15 PM EDT
== END 2023-12-10 09:29 | disposition home or self-care (01) ==
LOC: HO.MAMMO 09:28
PROVIDERS: PCP Internal Medicine; Visit Provider Internal Medicine
DX: Z12.31 Encounter for screening mammogram for malignant neoplasm of breast (principal)
CPT/HCPCS: 77063; 77067

== ENCOUNTER → 2023-12-10 09:45 | Outpatient (BNV) | payer MEDICARE, SELFPAY | PROVIDERS: PCP Internal Medicine; Visit Provider Internal Medicine | DX: Z12.31 Encounter for screening mammogram for malignant neoplasm of breast (principal) | CPT/HCPCS: 77063; 77067 ==

== ENCOUNTER 2024-08-12 09:01 | Outpatient (AMB) | payer MEDICARE, SELFPAY ==
--- NOTE | 2024-08-12 09:21 | A.OFFPC_ITS ---
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 Accompanied by: Self / Same As Patient Allergies meperidine [From Demerol] Allergy (Unknown, Verified 08/12/24 10:00) Nausea and Vomiting From Soy Adverse Reaction (Mild, Uncoded 08/12/24 10:00) PALPITATIONS Medication List - Last Reconciled 08/12/24 by Linda Jenkins PA-C alendronate 70 mg PO QWEEK cholecalciferol (vitamin D3) 1 mg PO DAILY furosemide 20 mg PO DAILY levothyroxine 75 mcg PO DAILY metoprolol tartrate 25 mg PO DAILY simvastatin 20 mg PO DAILY Tobacco use date assessed: 08/12/24 Fall risk assessment: 1 Fall in past year Last assessed Fall Risk: 08/12/24 Dental Screening Dental Screen Date: 08/12/24 Did you have a dental visit in the last 12 months?: Yes Did you have a dental problem in the last 6 months where you did not have access to dental care?: No Was dental information given to patient?: Patient has dentist (has partial dentures) HPI [facility] HPI Details The patient is an 88-year-old female presenting to [facility]. She reports a history of hypertension, managed with metoprolol, noting that her blood pressure is typically stable at home, although she experiences elevated readings in clinical settings, indicative of white coat syndrome. Her osteoarthritis, particularly affecting her fingers, is managed with Fosamax. For hypothyroidism, she is prescribed levothyroxine. Her hyperlipidemia is managed with simvastatin. The patient resides with her cat, while her son lives on the second floor, providing context for her home support system. Social History - Resides independently with a cat as a pet. - Her son lives on the second floor, pro viding additional household support. - Patient still drives - Reports no use of mobility aids such a s a walker or cane. [facility] Medical History (Updated 08/12/24 @ 10:07 by Linda Jenkins PA-C) History of mammogram (~11/2023) Hypothyroid Hypertension Establishing care with new doctor, encounter for Diabetes RBBB (right bundle branch block) PONV (postoperative nausea and vomiting) Osteoporosis On beta gopi at home [place] (hard of hearing) Osteoarthritis of right hip Surgical History (Updated 08/12/24 @ 10:07 by Linda Jenkins PA-C) Hx of right hemicolectomy Hx of colonoscopy (~2018) History of hysterectomy Family History Mother No problems noted. Father No problems noted. Social History Household Members Other:: Son lives upstairs - 2 family house Housing: House Are you a primary dialysis patient care technician to a significant other at home: No Do you presently have visiting nurse or other home services: No Alcohol intake: current Alcohol intake frequency: does not drink Patient Tobacco Use Status: Former Tobacco user Tobacco use type: Cigarette Second Hand Smoke Exposure: No service: No Current occupational status: retired Cognitive needs: No Hearing needs: Yes (b/l hearing aids) Vision needs: Yes (rx glasses) Questionnaire PHQ-9 Over the last 2 weeks, how often have you been bothered by any of the following problems? 1. Little interest or pleasure in doing things: not at all 2. Feeling down, depressed, or hopeless: not at all 3. Trouble falling or staying asleep, or sleeping too much: not at all 4. Feeling tired or having little energy: not at all 5. Poor appetite or overeating: not at all 6. Feeling bad about yourself - or that you are a failure or have let yourself or your family down: not at all 7. Trouble concentrating on things, such as reading the newspaper or watching television: not at all 8. Moving or speaking so slowly that other people could have noticed. Or the opposite - being so fidgety or restless that you have been moving around a lot more than usual: not at all 9. Thoughts that you would be better off or of hurting yourself in some way: not at all Total score: 0 Depression Screening Interpretation: Negative Depression Screening Done: Yes 55416 - PHQ-9 Billing: Yes Source: Developed by Drs. Junaid De León, Sharon BRubin Stiles and colleagues, with an educational sergio from [employer]. Thrive Questionnaire Date Thrive assessed: 08/12/24 I am a: Patient What is your living situation today?: I have a steady place to live Within the past 12 months, did the food you bought not last and you didn't have the money to get more?: Never true Within the past 12 months, did you worry whether your food would run out before you got money to buy more?: Never true Do you have trouble paying for medicines?: No Do you have trouble getting transportation to medical appointments?: No Do you have trouble paying your heating and electricity bill?: No Do you have trouble taking care of your child, family member or friend?: No Do you have trouble with day-to-day activities such as bathing, preparing meals, shopping, managing finances, etc.?: No Are you currently unemployed and looking for a job?: No Are you interested in more education?: No Please select the resources that you would like help with: None THRIVE Score: 0 AUDIT C Alcohol Use Questionnaire (AUDIT-C) 1. How often do you have a drink containing alcohol?: Never 3. How often do you have six or more drinks on one occasion?: Never Total Score: 0 Score Reviewed/Action Taken: No TIFFANY-7 AMB Questionnaire TIFFANY-7 Date TIFFANY - 7 assessed: 08/12/24 Feeling nervous, anxious, or on edge: 0 = Not at all Not being able to stop or control worryin = Not at all Worrying too much about different things: 0 = Not at all Trouble relaxin = Not at all Being so restless that it is hard to sit still: 0 = Not at all Becoming easily annoyed or irritable: 0 = Not at all Feeling afraid as if something awful might happen: 0 = Not at all Total TIFFANY-7 score (0-4 normal; 5-9 mild; 10-14 moderate; 15-21 severe): 0 Source: Developed by Drs. Junaid De León, Rubin Hand and colleagues, with an educational sergio from [employer]. TIFFANY-7 Assessment Billing TIFFANY-7 Assessment Tool: TIFFANY-7 Assessment 53610 Review of Systems Const Details: - Cardiovascular: Denies chest pain. - Endocrine: Denies new symptoms; reports taking thyroid medication. - Musculoskeletal: Reports joint discomfort. - Neurological: Denies dizziness. - Gastrointestinal: Denies abdominal pain or changes in bowel habits. - Genitourinary: Denies urinary symptoms. - General: Denies recent falls. Physical exam (Primary Care) Vital Signs: Last Vital Signs Temp 97.6 F 08/12/24 09:23 Pulse 60 08/12/24 09:23 Resp 12 08/12/24 09:23 BP 174/76 H 08/12/24 09:23 Pulse Ox 97 08/12/24 09:23 Oxygen Delivery Method Room Air 08/12/24 09:23 Care Plan Goal for BP management: <140/90 patient to monitor blood pressure over the next 2 weeks and return with blood pressure log BMI result Body Mass Index 22.0 Normal BMI Tobacco/Smoking Status: Tobacco use Status Tobacco use date assessed 08/12/24 08/12/24 09:30 Patient Tobacco Use Status Former Tobacco user 08/12/24 09:30 Tobacco use type Cigarette 08/12/24 09:30 PHQ-9: PHQ-9 Score PHQ-9: Total score 0 08/12/24 09:30 Depression Screening Interpretation: Negative Thrive Assessment: Date of Thrive Assessment Date Thrive assessed 08/12/24 08/12/24 09:30 Const Other: Appearance: Alert. Oriented X3. No acute distress. Head: Normal external exam. Normocephalic. Atraumatic. Eyes: Pupils are equal, round, and reactive to light. Extraocular movements intact. Conjunctiva and sclera normal. Eyelids normal. Ears: External auditory canal normal. Tympanic membranes normal. Throat: Pharynx normal. Uvula midline. Moist mucous membranes. Neck: Normal inspection. Neck supple. Full range of motion. No adenopathy. Thyroid Normal. No meningeal signs. No neck mass noted. Cardiovascular: Normal heart rate and rhythm. Heart sound normal. No murmurs noted. Pulses normal throughout. Respiratory: No respiratory distress. Painless inspiration. Breath sounds normal. No wheezes/rales/rhonchi noted. Chest nontender. No accessory muscle [place] noted or decreased air movement noted. Abdomen: Soft and nontender. Bowel sounds normal in all 4 quadrants. No distention noted. No organomegaly noted. No visible injury noted. Back: No costovertebral angle tenderness. Full range of motion noted. Skin: Skin warm and dry. Normal skin color. Normal skin turgor. No rashes/lesions/lacerations noted. Extremities: No lower extremity edema. Extremities exhibit normal range of motion. Extremities nontender. Neuro: Oriented X 3. No motor deficit. No sensory deficit. Reflexes normal. Results Reviewed Results Reviewed: - Labs: Last blood work reported in September 2023. - Procedures: Upcoming mammogram scheduled for November 2024. - Other: Reports past colonoscopy in 2021. Coding Level of Care Code New Pt Level 4 (34857) Complex EM visit Add On G2211 Diagnoses Establishing care with new doctor, encounter for Z76.89 Osteoporosis M81.0 Hypothyroid E03.9 Hypertension I10 Additional Codes PHQ-9 - 41356 - PHQ-9 Billing: Yes ([id number]) TIFFANY-7 Assessment Billing - TIFFANY-7 Assessment Tool: TIFFANY-7 Assessment 08168 ([id number]) Assessment & Plan Assessment & Plan (1) Establishing care with new doctor, encounter for: Code(s): Z76.89 - Persons encountering health services in other specified circumstances Category: Medical (2) Osteoporosis: Code(s): M81.0 - Age-related osteoporosis without current pathological fracture Category: Medical Plan: Patient to continue Fosamax daily. Condition is chronic and stable continue to monitor. (3) Hypothyroid: Code(s): E03.9 - Hypothyroidism, unspecified Category: Medical Plan: Patient to continue levothyroxine 75 mcg daily. Condition is chronic and stable continue to monitor. (4) Hypertension: Code(s): I10 - Essential (primary) hypertension Category: Medical Plan: Blood pressure goal less than 140/90. Patient to continue furosemide 20 mg daily and metoprolol 25 mg daily and to keep a blood pressure log over the next 2 weeks and return with blood pressure log. If blood pressure remains elevated considering adding a 3rd agent or increasing current blood pressure medications. Condition is chronic and stable patient understands agrees with plan. Plan Plan Patient was informed and verbally consented to the use of an ambient scribe for clinic note documentation during this visit. 1. Hypertension Plan: The patient is advised to continue metoprolol, monitor her blood pressure at home, and record her findings for review at the next appointment. Consideration of adding lisinopril will depend on home monitoring results. 2. Osteoarthritis Plan: The patient is encouraged to continue Fosamax for bone health and advised that her treatment will be re-evaluated if her condition changes or upon receipt of updated bone density measurements. 3. Hypothyroidism Plan: The patient will continue her prescribed levothyroxine. She is reminded to bring her medications to her next visit for medication reconciliation. 4. Hyperlipidemia Plan: The patient will continue simvastatin for cholesterol management, with plans to monitor lipid levels periodically. During today's visit, I discussed the management of the patient's medical condi tions, including hypertension, osteoarthritis, hypothyroidism, and hyperlipidemia. We reviewed her current medication regimen and discussed the importance of adherence. I advised her to monitor her blood pressure at home and return with recordings to better assess her need for potential medication adjustments. The patient was encouraged to maintain her current medication schedule for osteoporosis and thyroid management, and we clarified any medication concerns. Risks and benefits of her current medications were reviewed, along with a plan for ongoing monitoring and follow-up evaluations. Orders: Orders C Reactive Protein Today Z00.00 - Encounter for general adult medical examination without abnormal findings TSH reflex Free T4 Today Z00.00 - Encounter for general adult medical examination without abnormal findings Magnesium Today Z00.00 - Encounter for general adult medical examination without abnormal findings Vitamin D 25-OH Total Today Z00.00 - Encounter for general adult medical examination without abnormal findings Microalbumin, Random (w Creat) Today E11.9 - Type 2 diabetes mellitus without complications Complete Blood Count Auto Diff Today Z00.00 - Encounter for general adult medical examination without abnormal findings Comprehensive [place]. Panel Fast Today Z00.00 - Encounter for general adult medical examination without abnormal findings Lipid Panel Today Z00.00 - Encounter for general adult medical examination without abnormal findings Liver Panel Today Z00.00 - Encounter for general adult medical examination without abnormal findings Hemoglobin A1c Today Z00.00 - Encounter for general adult medical examination without abnormal findings Vitamin B12 and Folate Today Z00.00 - Encounter for general adult medical examination without abnormal findings Patient Instructions: - Continue taking current medications as prescribed: metoprolol, levothyroxine, simvastatin, and Fosamax. - Monitor blood pressure at home and record readings. - Arrange to have blood work completed before the next visit. - Follow instructions for upcoming mammogram in November 2024. - Report any new symptoms, such as chest pain or dizziness, promptly. - Follow up in one month with recorded blood pressure readings. - Maintain appointments with all healthcare providers, including future dental and specialist visits.
[2024-08-12 09:23] VITALS: BP 164/72; PULSE 60; RESP 12; TEMP 36.4; O2SAT 97; BMI 22.0
== END 2024-08-12 09:53 | disposition home or self-care (01) ==
LOC: HO.HMCH 09:02
PROVIDERS: PCP Internal Medicine; Visit Provider Physician Assistant Medical
DX: Z76.89 Persons encountering health services in other specified circumstances (principal); M81.0 Age-related osteoporosis without current pathological fracture; E03.9 Hypothyroidism, unspecified; I10 Essential (primary) hypertension

== ENCOUNTER → 2024-08-12 09:01 | Outpatient (BNVA) | payer MEDICARE, SELFPAY | PROVIDERS: PCP Internal Medicine; Visit Provider Physician Assistant Medical | DX: M81.0 Age-related osteoporosis without current pathological fracture (principal); E03.9 Hypothyroidism, unspecified; I10 Essential (primary) hypertension; Z76.89 Persons encountering health services in other specified circumstances | CPT/HCPCS: 96127; 99202 ==

== ENCOUNTER 2024-08-25 06:01 | Outpatient (REF) | payer MEDICARE, SELFPAY ==
[2024-08-25 06:22] LABS: MANUAL DIFF FLAG NO
[2024-08-25 07:22] LABS: Basophils Absolute Auto 0.1 X10*3/uL (0.0-0.2); Basophils Percent Auto 0.9 % (0-2); Eosinophils Absolute Auto 0.1 X10*3/uL (0.0-0.4); Eosinophils Percent Auto 1.9 % (0-4); Hematocrit 43.3 % (37.0-47.0); Hemoglobin 14.2 g/dl (12.0-16.0); Imm Gran Abs Auto 0.01 X10*3/uL (0.00-0.03); Imm Gran Pct Auto 0.2 % (0.0-0.4); Lymphocytes Absolute Auto 2.2 X10*3/uL (1.2-4.9); Lymphocytes Percent Auto 38.7 % (20-40); Mean Corpuscular HGB Conc 32.8 g/dl (31.0-35.0); Mean Corpuscular Hemoglobin 29.7 pg (27.0-33.0); Mean Corpuscular Volume 90.6 fL (80.0-98.0); Mean Platelet Volume 9.9 fL (9.4-12.3); Monocytes Absolute Auto 0.5 X10*3/uL (0.1-1.2); Monocytes Percent Auto 9.2 % (2-11); Neutrophils Absolute Auto 2.8 x10*3/uL (2.0-8.3); Neutrophils Percent Auto 49.1 % (45-73); Platelet Count 289 X10*3/uL (160-400); Red Blood Count 4.78 X10*6/uL (4.20-5.50); Red Cell Distribution Width 13.6 % (11.0-16.0); White Blood Count 5.7 X10*3/uL (4.8-10.8)
[2024-08-25 07:32] LABS: Estimated Average Glucose 117 mg/dL; Hemoglobin A1c % 5.7 % (<6.0)
[2024-08-25 07:51] LABS: Creatinine Urine 160.52 mg/dL; Microalbum/Creatinine Ratio Ur 3.7 ug/mg cr (<30)
[2024-08-25 08:00] LABS: Alanine Aminotransferase 16 U/L (0-31); Alkaline Phosphatase 56 U/L (39-117); Anion Gap 11 (12-20); Aspartate Amino Transferase 30 U/L (5-31); Bilirubin Direct 0.2 mg/dL (0.0-0.5); Bilirubin Total 0.7 mg/dL (0.0-1.0); Blood Urea Nitrogen 20 mg/dL (9-16); C Reactive Protein < 0.10 mg/dL (< or = 0.50); Calcium 9.4 mg/dL (8.4-10.2); Carbon Dioxide 31 mmol/L (22-29); Chloride 104 mmol/L (96-108); Cholesterol 173 mg/dL (<200); Estimated Glomerular Filt Rate 48; Glucose Fasting 115 mg/dL (60-99); HDL Cholesterol 48 mg/dL (>40); LDL Cholesterol Calculated 107 mg/dL (<100); Magnesium 2.2 mg/dL (1.6-2.6); Potassium 4.2 mmol/L (3.3-5.1); Sodium 142 mmol/L (135-145); Total Protein 6.7 g/dL (6.5-8.0); Triglycerides 92 mg/dL (<150)
[2024-08-25 08:18] LABS: TSH reflex Free T4 0.52 uIU/mL (0.32-4.0); Vitamin D 25-OH Total 64.7 ng/mL (>30)
[2024-08-25 08:28] LABS: Vitamin B12 152 pg/mL (200-900)
== END 2024-08-25 06:02 | disposition home or self-care (01) ==
LOC: HO.LAB 06:01
PROVIDERS: PCP Physician Assistant Medical; Visit Provider Physician Assistant Medical
DX: Z00.00 Encounter for general adult medical examination without abnormal findings (principal); E11.9 Type 2 diabetes mellitus without complications
CPT/HCPCS: 36415; 80053; 80061; 80076; 82043; 82248; 82306; 82570; 82607; 82746; 83036; 83735; 84443; 85025; 86140

== ENCOUNTER 2024-08-26 09:14 | Outpatient (AMB) | payer MEDICARE, SELFPAY ==
--- NOTE | 2024-08-26 09:25 | A.OFFPC_ITS ---
Vital Signs 08/26/24 09:26 Height 5 ft 5 in Weight 131 lb BMI 21.8 BP 138/64 Blood Pressure Location Lt brachial Position Sitting Respiration 12 Pulse 55 Pulse Source Pulse Oximeter Temp 98.1 F Temp Source Temporal Artery Scan Pulse Oximetry (%) 97 Oxygen Delivery Method Room Air Intake Visit Reasons: 2 week f/u, BP check Project Manager/Team Coach Required: No Accompanied by: Self / Same As Patient Allergies meperidine [From Demerol] Allergy (Unknown, Verified 08/26/24 10:00) Nausea and Vomiting From Soy Adverse Reaction (Mild, Uncoded 08/26/24 10:00) PALPITATIONS Medication List - Last Reconciled 08/26/24 by Linda Jenkins PA-C alendronate 70 mg PO QWEEK cholecalciferol (vitamin D3) 1 mg PO DAILY furosemide 20 mg PO DAILY levothyroxine 75 mcg PO DAILY metoprolol tartrate 25 mg PO DAILY simvastatin 20 mg PO DAILY Tobacco use date assessed: 08/26/24 Dental Screening Dental Screen Date: 08/12/24 HPI 2 week f/u, BP check HPI Details The patient is an 88-year-old female presenting with concerns of managing her blood pressure and securing healthcare proxies. She reports blood pressure readings generally within the desired range, acknowledging the occasional spike without symptoms of hypertension-associated complications. During previous testing, her first diagnosis of vitamin B12 deficiency was made; no associated symptoms were reported, but intervention was discussed. Additionally, her elevated fasting glucose level suggests prediabetes which requ ires lifestyle modifications. Proxies for healthcare decision-making were established in compliance with her preferences for potential medical interventions. Social History - Family Status: Two daughters and two s ons. One son resides with her in a shared home, and the other son is a designated healthcare proxy. - Functional Status: Maintains an active lifestyle by engaging in gardening and outdoor activities frequently. - Housing: Lives in a shared home with h er son in [place]. [facility] Medical History (Updated 08/26/24 @ 10:15 by Linda Jenkins PA-C) Prediabetes Encounter for brief counseling about health care proxy document Vitamin B12 deficiency Full code status (~08/26/24) History of mammogram (~11/2023) Hypothyroid Hypertension Establishing care with new doctor, encounter for Diabetes RBBB (right bundle branch block) PONV (postoperative nausea and vomiting) Osteoporosis On beta gopi at home [place] (hard of hearing) Osteoarthritis of right hip Surgical History Hx of right hemicolectomy Hx of colonoscopy (~2018) History of hysterectomy Family History Mother No problems noted. Father No problems noted. Social History Household Members Other:: Son lives upstairs - 2 family house Housing: House Are you a primary home care aide to a significant other at home: No Do you presently have visiting nurse or other home services: No Alcohol intake: current Alcohol intake frequency: does not drink Patient Tobacco Use Status: Former Tobacco user Tobacco use type: Cigarette Second Hand Smoke Exposure: No service: No Current occupational status: retired Cognitive needs: No Hearing needs: Yes (b/l hearing aids) Vision needs: Yes (rx glasses) Questionnaire PHQ-9 Over the last 2 weeks, how often have you been bothered by any of the following problems? 1. Little interest or pleasure in doing things: not at all 2. Feeling down, depressed, or hopeless: not at all 3. Trouble falling or staying asleep, or sleeping too much: not at all 4. Feeling tired or having little energy: not at all 5. Poor appetite or overeating: not at all 6. Feeling bad about yourself - or that you are a failure or have let yourself or your family down: not at all 7. Trouble concentrating on things, such as reading the newspaper or watching television: not at all 8. Moving or speaking so slowly that other people could have noticed. Or the opposite - being so fidgety or restless that you have been moving around a lot more than usual: not at all 9. Thoughts that you would be better off or of hurting yourself in some way: not at all Total score: 0 Depression Screening Interpretation: Negative Depression Screening Done: Yes 63039 - PHQ-9 Billing: Yes Source: Developed by Drs. Junaid De León, Sharon Regan, Rubin Rodriguez and colleagues, with an educational sergio from [employer]. Thrive Questionnaire Date Thrive assessed: 08/12/24 I am a: Patient What is your living situation today?: I have a steady place to live Within the past 12 months, did the food you bought not last and you didn't have the money to get more?: Never true Within the past 12 months, did you worry whether your food would run out before you got money to buy more?: Never true Do you have trouble paying for medicines?: No Do you have trouble getting transportation to medical appointments?: No Do you have trouble paying your heating and electricity bill?: No Do you have trouble taking care of your child, family member or friend?: No Do you have trouble with day-to-day activities such as bathing, preparing meals, shopping, managing finances, etc.?: No Are you currently unemployed and looking for a job?: No Are you interested in more education?: No Please select the resources that you would like help with: None THRIVE Score: 0 AUDIT C Alcohol Use Questionnaire (AUDIT-C) 1. How often do you have a drink containing alcohol?: Never 3. How often do you have six or more drinks on one occasion?: Never Total Score: 0 Score Reviewed/Action Taken: No TIFFANY-7 AMB Questionnaire TIFFANY-7 Date TIFFANY - 7 assessed: 08/12/24 Feeling nervous, anxious, or on edge: 0 = Not at all Not being able to stop or control worryin = Not at all Worrying too much about different things: 0 = Not at all Trouble relaxin = Not at all Being so restless that it is hard to sit still: 0 = Not at all Becoming easily annoyed or irritable: 0 = Not at all Feeling afraid as if something awful might happen: 0 = Not at all Total TIFFANY-7 score (0-4 normal; 5-9 mild; 10-14 moderate; 15-21 severe): 0 Source: Developed by Drs. Junaid De León, Sharon Regan, Rubin Rodriguez and colleagues, with an educational sergio from [employer]. TIFFANY-7 Assessment Billing TIFFANY-7 Assessment Tool: TIFFANY-7 Assessment 16988 Review of Systems Const Details: - Cardiovascular: Reports occasional elevated blood pressure, Denies associated symptoms like dizziness or syncope. - Endocrine: Reports previously elevated blood glucose. - Neurological: Denies symptoms typical of vitamin B12 deficiency like memory impairment beyond mild forgetfulness, Denies neurological deficits. Physical exam (Primary Care) Vital Signs: Last Vital Signs Temp 98.1 F 08/26/24 09:26 Pulse 55 08/26/24 09:26 Resp 12 08/26/24 09:26 BP 155/67 H 08/26/24 09:26 Pulse Ox 97 08/26/24 09:26 Oxygen Delivery Method Room Air 08/26/24 09:26 Care Plan Goal for BP management: <140/90 at Goal BMI result Body Mass Index 21.8 normal bmi Tobacco/Smoking Status: Tobacco use Status Tobacco use date assessed 08/26/24 08/26/24 09:39 Patient Tobacco Use Status Former Tobacco user 08/26/24 09:39 Tobacco use type Cigarette 08/26/24 09:39 PHQ-9: PHQ-9 Score PHQ-9: Total score 0 08/26/24 09:39 Depression Screening Interpretation: Negative Thrive Assessment: Date of Thrive Assessment Date Thrive assessed 08/12/24 08/26/24 09:39 Advance Care Planning discussion: Completed/Scanned Date of discussion: 08/26/24 Forms completed: Health Care Proxy and MOLST Time spent: 16-45 minutes Actual minutes spent: 20 Did not discuss due to Cultural/Spiritual beliefs: No Const Other: Appearance: Alert. Oriented X3. No acute distress. Head: Normal external exam. Normocephalic. Atraumatic. Eyes: Pupils are equal, round, and reactive to light. Extraocular movements intact. Conjunctiva and sclera normal. Eyelids normal. Throat: Moist mucous membranes. Neck: Normal inspection. Neck supple. Full range of motion. Cardiovascular: Normal heart rate and rhythm. Respiratory: No respiratory distress. Painless inspiration. Back: Full range of motion noted. Skin: Skin warm and dry. Normal skin color. Normal skin turgor. No rashes/lesions/lacerations noted. Extremities: Extremities exhibit normal range of motion. Results Reviewed Results Reviewed: - Labs: Mild elevation in glucose level identified at 115 mg/dL, Vitamin B12 level below normal. Coding Level of Care Code Est Pt Level 4 (38839) Complex EM visit Add On G2211 Diagnoses Hypertension I10 Full code status Z78.9 Encounter for brief counseling about health care proxy document Z71.89 Vitamin B12 deficiency E53.8 Prediabetes R73.03 Additional Codes TIFFANY-7 Assessment Billing - TIFFANY-7 Assessment Tool: TIFFANY-7 Assessment 41673 ([id number]) PHQ-9 - 34454 - PHQ-9 Billing: Yes ([id number]) Vital Signs *Quality* - Advance Care Planning discussion: Completed/Scanned ([id number]) Vital Signs *Quality* - Time spent: 16-45 minutes ([id number]) Assessment & Plan Assessment & Plan (1) Hypertension: Code(s): I10 - Essential (primary) hypertension Category: Medical Plan: The blood pressure is monitored and managed to maintain levels below 140/90 mmHg, with a focus on lifestyle modifications. Condition is chronic and stable will continue furosemide 20 mg daily, metoprolol 25 mg daily and simvastatin 20 mg daily. (2) Full code status: Onset Date: ~08/26/24 Code(s): Z78.9 - Other specified health status Category: Medical Plan: Patient filled out MOLST form. Patient is a full code. Instructed patient to discuss this with her family and to place on her refrigerator in case of emergency. (3) Encounter for brief counseling about health care proxy document: Comment: Mohan Adkins HCP Code(s): Z71.89 - Other specified counseling Category: Medical Plan: Discussed with patient healthcare proxy now in system. Explained to patient she should discuss with her family her healthcare wishes and her healthcare proxy. (4) Vitamin B12 deficiency: Code(s): E53.8 - Deficiency of other specified B group vitamins Category: Medical Plan: Initiate daily oral vitamin B12 supplementation, with a follow-up in six months. Condition is new and stable will continue to monitor. (5) Prediabetes: Code(s): R73.03 - Prediabetes Category: Medical Plan: Emphasize dietary and lifestyle changes to manage glucose levels, avoiding immediate diabetic medication. Condition is new unstable will continue to monitor and patient will improve her diet and exercise regimen. Plan Plan Patient was informed and verbally consented to the use of an ambient scribe for clinic note documentation during this visit. 1. Essential Hypertension The blood pressure is monitored and managed to maintain levels below 140/90 mmHg, with a focus on lifestyle modifications. 2. Vitamin B12 Deficiency Initiate daily oral vitamin B12 supplementation, with a follow-up in six months. 3. Prediabetes Emphasize dietary and lifestyle changes to manage glucose levels, avoiding immediate diabetic medication. I discussed with the patient her blood pressure management, highlighting that home readings below 140/90 mmHg are satisfactory and encouraged ongoing monitoring. For vitamin B12 deficiency, we agreed to initiate daily supplementation due to its potential benefits, particularly in cognitive function. Regarding prediabetes, I recommended lifestyle changes to regulate her glucose levels without necessitating pharmaceutical intervention. We established her healthcare proxies and discussed possible future medical interventions. The patient was informed of the risks and the intended outcomes of these preparations, including ensuring her preferences in case of emergent care. I emphasized placing proxy documentation in an accessible location, like the fridge, ensuring family awareness of healthcare decisions. Medications: New cyanocobalamin (vitamin B-12) 100 mcg PO DAILY 90 tabs 1RF E53.8 - Deficiency of other specified B group vitamins Patient Instructions: - Monitor blood pressure regularly and report any readings consistently above 140/90 mmHg. - Begin taking vitamin B12 supplements daily as directed. - Focus on dietary changes and physical activity to manage glucose levels. - Discuss healthcare proxy decisions with family members. - Place the healthcare proxy documentation on the fridge for easy access. - Return for follow-up in six months or sooner if blood pressure or glucose concerns occur.
[2024-08-26 09:26] VITALS: BP 138/64; PULSE 55; RESP 12; TEMP 36.7; O2SAT 97; BMI 21.8
== END 2024-08-26 10:14 | disposition home or self-care (01) ==
LOC: HO.HMCSH 09:14
PROVIDERS: PCP Physician Assistant Medical; Visit Provider Physician Assistant Medical
DX: I10 Essential (primary) hypertension (principal); Z78.9 Other specified health status; Z71.89 Other specified counseling; E53.8 Deficiency of other specified B group vitamins; R73.03 Prediabetes; Z00.00 Encounter for general adult medical examination without abnormal findings

== ENCOUNTER → 2024-08-26 09:14 | Outpatient (BNVA) | payer MEDICARE, SELFPAY | PROVIDERS: PCP Physician Assistant Medical; Visit Provider Physician Assistant Medical | DX: I10 Essential (primary) hypertension (principal); E53.8 Deficiency of other specified B group vitamins; R73.03 Prediabetes; Z78.9 Other specified health status; Z71.89 Other specified counseling | CPT/HCPCS: 96127; 99212; 99497 ==

== ENCOUNTER 2024-12-16 07:25 | Outpatient (REF) | payer MEDICARE, SELFPAY ==
--- NOTE | ~2024-12-16 | MM_ITS ---
EXAMINATION: MM SCREENING DIGITAL BREAST TOMOSYNTHESIS, BILATERAL CLINICAL INFORMATION: Screening. Asymptomatic. COMPARISON: Mammography: Comparison is made with available priors TECHNIQUE: Digital breast mammography with tomosynthesis is performed in both the craniocaudal and mediolateral oblique views along with computer-aided detection (CAD). FINDINGS: There are scattered areas of fibroglandular density. There are no significant masses, abnormal calcifications, or other abnormalities. MM/MM tomosynthesis screening BI IMPRESSION: No mammographic evidence of malignancy. ASSESSMENT: BI-RADS Category 1: Negative RECOMMENDATION: Routine annual mammography screening. 1 year F/U This examination should not preclude the clinical evaluation of a suspicious palpable abnormality. This patient's information was entered into a reminder system with a target due date for their next mammogram. Electronically signed by: Aster Kaye DO 12/19/2024 05:36 PM EDT
--- OUTSIDE RECORDS SUMMARY | 2024-12-16 07:28 | XMS_ITS | Patient Health Record ---
Author Organization [facility] Address [address] [place] [id number] Care Team Providers Care Material Mover Name Role Phone Holli Miller Primary Care Provider Ramon Martinez Jr Unavailable [phone] Allergies Allergen (clinical drug ingredient) Drug/Non Drug Allergy documented on EMR Reaction Allergy Type Onset Date Status meperidine Demerol Unknown Drug Allergy Active soy (uncoded) Unknown Allergy Active Reason For Referral No Information Medications Medication SIG (Take, Route, Frequency, Duration) Notes Start Date End Date Status Lotrel 5-10 MG 1 capsule Orally Onc e a day Active Metoprolol Tartrate 25 MG 1 tablet with food Orally Twice a day Active Colyte with Flavor Packs 240 GM As directed Orally Over the specified time. for 1 day(s) 08/29/2015 Active Vitamin D 1000 UNIT 1 tablet Orally Once a day Active Probiotic Complex Acidophilus 1 1 capsule Orally once a day Active Levothyroxine Sodium 75 MCG /2 on thu,w ed,fridays and 1 tab all other days Orally as directed Active Aspir-81 81 MG 1 tablet Orally Once a day Active Simvastatin 20 MG 1 tablet in the even ing Orally Once a day Active Immunizations Vaccine Route Administration Date Status Comme nts Flu vaccine no Preserv 3 and > Unknown 12/26/2014 Admin istered Problems Problem Type SNOMED Code ICD Code Onset Dates Problem Status W/U Status Risk Notes Problem [id number] Colon cancer screening (Z12.11) Active confirmed Problem [id number] detention (current) use of aspirin (Z79.82) Active confirmed Plan Of Treatment Future Test Test Name Order Date COLONOSCOPY 08/29/2015 Insurance Providers Payer Name Payer Address Payer Phone Subscriber Number Group Number Insured Name Patient Relationship to Insured Coverage Start Date Coverage End Date MEDICARE OF [place] [address] [place] [id number] MERY CARIAS Self - patient is the insured [employer] CLAIMS [address] [place] [address] [id number] MERY CARIAS Self - patient is the insured Medical (General) History Medical History History ICD Code colonosscopy 08-23-2010 hypertension hypothyroidism osteopenia elevated cholesterol Surgical History Surgery Date(Month/Year) hysterectomy colon resection
== END 2024-12-16 07:26 | disposition home or self-care (01) ==
LOC: HO.MAMMO 07:25
PROVIDERS: PCP Physician Assistant Medical; Visit Provider Physician Assistant Medical
DX: Z12.31 Encounter for screening mammogram for malignant neoplasm of breast (principal)
CPT/HCPCS: 77063; 77067

== ENCOUNTER → 2024-12-16 07:30 | Outpatient (BNV) | payer MEDICARE, SELFPAY | PROVIDERS: PCP Physician Assistant Medical; Visit Provider Internal Medicine | DX: Z12.31 Encounter for screening mammogram for malignant neoplasm of breast (principal) | CPT/HCPCS: 77063; 77067 ==